=== PATIENT | female | born 1945 | race Caucasian/White ===

== ENCOUNTER → 2022-04-15 16:11 | Outpatient (BNVA) | payer MEDICARE, SELFPAY | PROVIDERS: Family Provider Family Medicine; Visit Provider Family Medicine | DX: N39.0 Urinary tract infection, site not specified (principal); M79.651 Pain in right thigh; M54.9 Dorsalgia, unspecified | CPT/HCPCS: 81000; 87077; 87086; 87184 ==

== ENCOUNTER → 2022-04-28 08:37 | Outpatient (BNVA) | payer MEDICARE, SELFPAY | PROVIDERS: Family Provider Family Medicine; PCP Family Medicine; Visit Provider Clinical Nurse Specialist Adult Health | DX: R30.0 Dysuria (principal); N30.00 Acute cystitis without hematuria | CPT/HCPCS: 81003; 87086 ==

== ENCOUNTER → 2022-05-14 14:39 | Outpatient (BNVA) | payer MEDICARE, SELFPAY | PROVIDERS: Family Provider Family Medicine; PCP Family Medicine; Visit Provider Clinical Nurse Specialist Adult Health | DX: R10.84 Generalized abdominal pain (principal) | CPT/HCPCS: 81003; 87077; 87086; 87184 ==

== ENCOUNTER 2022-05-16 18:05 | Emergency (ER) | payer MEDICARE, SELFPAY ==
[2022-05-16 18:23] VITALS: BP 160/107; PULSE 91; RESP 16; TEMP 36.2; O2SAT 95
[2022-05-16 18:36] VITALS: BP 174/99; PULSE 82; RESP 21; O2SAT 92
--- NOTE | 2022-05-16 18:38 | CTR_ITS ---
PROCEDURE INFORMATION: Exam: CT Abdomen And Pelvis Without Contrast Exam date and time: 05/16/2022 7:03 PM Age: 76 years old Clinical indication: Abdominal pain; Generalized; Additional info: Abd pain, centralized, x 4 days TECHNIQUE: Imaging protocol: Computed tomography of the abdomen and pelvis without contrast. Radiation optimization: All CT scans at this facility use at least one of these dose optimization techniques: automated exposure control; mA and/or kV adjustment per patient size (includes targeted exams where dose is matched to clinical indication); or iterative reconstruction. COMPARISON: No relevant prior studies available. RADIATION DOSE METRICS: Total DLP (mGy-cm): 803.24 FINDINGS: Lungs: There noncalcified nodules at the bilateral lung bases the largest of which measures 5 mm in the right middle lobe series 3, image 1.There are pulmonary parenchymal calcifications consistent with remote granulomatous organism exposure. Liver: Normal. No mass. Gallbladder and bile ducts: Gallbladder is filled with stones. Gallbladder wall is not well seen. Pancreas: Normal. No ductal dilation. Spleen: Normal. No splenomegaly. Adrenal glands: Normal. No mass. Kidneys and ureters: There are nonobstructing bilateral renal calculi. Stomach and bowel: There is diverticulosis of the colon without evidence of diverticulitis. Small hiatal hernia. Bowel mucosa not optimally visualized without oral or IV contrast. Appendix: Portions of the appendix are visualized and are normal in caliber measuring 5.3 mm. Intraperitoneal space: There is omental caking. Vasculature: Unremarkable. No abdominal aortic aneurysm. Lymph nodes: Unremarkable. No enlarged lymph nodes. Urinary bladder: Unremarkable as visualized. Reproductive: Unremarkable as visualized. Bones/joints: There are degenerative changes in the visualized spine. Multilevel lumbar broad-based disc osteophyte complexes.There is close approximation of the lumbar spinous processes associated with degenerative changes across the opposing surfaces, consistent with [place]'s findings. There are minimal chronic compression deformities of multiple lower thoracic and lumbar vertebra. Soft tissues: Unremarkable. CT/CT abdomen pelvis wo con [id number] IMPRESSION: 1. There is omental caking. Most common cause is metastatic disease from ovarian, gastric, or colon cancer. Differential includes other causes such is lymphoma, peritoneal mesothelioma, and tuberculosis peritonitis. 2. Gallbladder is filled with stones in the gallbladder wall is not well seen. 3. There are noncalcified nodular densities at the lung bases the larger of which measures 5 mm in the right middle lobe.For patients at low risk (minimal or absent history of smoking and of other known risk factors), no routine follow-up is indicated. For patients at high risk (history of smoking or of other known risk factors), consider optional CT Chest at 12 months. (Reference: Boy) REFERENCES: Boy Merritt, et al. Guidelines for Management of Incidental Pulmonary Nodules Detected on CT Images: From the Fleischner Society 2017. Radiology. 2017;284(1):228-243.
--- NOTE | 2022-05-16 18:40 | ED_ITS ---
HPI - Nausea/Vomiting/Diarrhea General: Chief complaint: Nausea/Vomiting/Diarrhea Stated complaint: ABD N\V Time Seen by Provider: 05/16/22 18:22 Source: patient Mode of arrival: ambulatory Limitations: no limitations History of Present Illness: 76-year-old female who states that she diagnosed a urinary tract infection 2 weeks ago she denies antibiotics states that over the last 4 days she has been developing diffuse abdominal pain along with nausea and vomiting. States she had a hard time tolerating anything p.o. states her pain is sharp in nature and rates it a 8 out of 10 denies any worsening proving factors denies any fevers or diarrhea. Associated nausea: Yes Associated symtoms: Reports nausea; Denies chest pain, dysuria or headache(s) Review of Systems Const: Denies: fever(s), chills, body aches or change in appetite Eyes: Denies: blurry vision or eye discomfort ENMT: Denies: throat pain or dental pain Card: Denies: chest pain Resp: Denies: dyspnea GI: Reports: abdominal pain, nausea and vomiting : Denies: dysuria Musc: Denies: neck pain or back pain Skin/Breast: Denies: rash Neuro: Denies: headache(s) Psych: Denies: depression Avinash/Lymph: Denies: easy bruising All/Imm: Denies: urticaria PFSH ED PFSH: Medical History No chronic diseases present Surgical History No pertinent past surgical history Family History (Updated 05/14/22 @ 11:37 by Cirilo Brambila NP) Son Cancer Unknown CAD (coronary artery disease) Cancer Social History Smoking and tobacco status: never smoked Alcohol intake: never Physical Exam Const: COMMON NORMALS: no acute distress, patient oriented x3 and healthy appearing HENMT: COMMON NORMALS: normocephalic and atraumatic HEAD & SCALP: normocephalic and atraumatic Eye: COMMON NORMALS: Equal, round and reactive pupils present and EOMs intact bilaterally PUPIL: Yes Equal, round and reactive pupils present Neck/C-Spine: COMMON NORMALS: full ROM and supple Chest: COMMONS NORMALS: normal inspection of the chest and normal palpation of entire chest wall Resp: COMMON NORMALS: normal respiratory effort, No retractions, No use of accessory muscles and clear to auscultation bilaterally AUSCULTATION: clear to auscultation bilaterally Cardio: COMMON NORMALS: regular rate, regular rhythm and No murmurs present (Cardio) RATE: regular rate RHYTHM: regular rhythm GI: COMMON NORMALS: Normal to inspection, nondistended, normoactive bowel sounds present, Soft to palpation, non-tender and no masses PALPATION: Yes Soft to palpation Extremity: COMMON NORMALS: normal to inspection and full ROM Neuro: COMMON NORMALS: patient oriented x3, moves all extremities and no focal motor deficits Psych: COMMON NORMALS: mental status grossly normal, Normal thought process present and cooperative THOUGHT PROCESS: Normal thought process present Skin: COMMON NORMALS: no rashes or lesions noted and no wounds GENERAL SKIN EXAM: no rashes or lesions noted Course Vital Signs: Vital signs: Vital Signs Temperature 97.1 F L 05/16/22 18:23 Pulse Rate 82 05/16/22 18:36 Respiratory Rate 21 H 05/16/22 18:49 Blood Pressure 174/99 05/16/22 18:36 Pulse Oximetry 92 05/16/22 18:36 Oxygen Delivery Me thod 05/16/22 18:36 MDM - Nausea/Vomiting/Diarrhea Medical Decision Making Patient presents here with abdominal pain CT did show omental caking is worrisome for metastatic disease. She does have gallstones no signs of cholecystitis. Her pain is improved here along with her nausea. We will get her oncology follow-up started on pain meds nausea medicine she is return to the ER if worsening she understands agrees to plan. Lab Data : 05/16/22 18:42 05/16/22 18:42 Radiology Impressions Abdomen/Pelvis CT 05/16/22 18:38 IMPRESSION: 1. There is omental caking. Most common cause is metastatic disease from ovarian, gastric, or colon cancer. Differential includes other causes such is lymphoma, peritoneal mesothelioma, and tuberculosis peritonitis. 2. Gallbladder is filled with stones in the gallbladder wall is not well seen. 3. There are noncalcified nodular densities at the lung bases the larger of which measures 5 mm in the right middle lobe.For patients at low risk (minimal or absent history of smoking and of other known risk factors), no routine follow-up is indicated. For patients at high risk (history of smoking or of other known risk factors), consider optional CT Chest at 12 months. (Reference: Boy) REFERENCES: Boy Merritt, et al. Guidelines for Management of Incidental Pulmonary Nodules Detected on CT Images: From the Fleischner Society 2017. Radiology. 2017;284(1):228-243. ADDENDUM: 05/16/221950 CRITICAL RESULT: The study was personally discussed on the telephone with Dr. Hanks on 05/16/2022 7:50 PM CDT. The results were understood and acknowledged. Laboratory Results WBC 8.0 10^3/uL (4.0-10.0) 05/16/22 18:42 RBC 4.76 10^6/uL (4.1-5.3) 05/16/22 18:42 Hgb 13.6 g/dL (11.5-15.3) 05/16/22 18:42 Hct 41.4 % (37.0-47.0) 05/16/22 18:42 MCV 87.0 fl (81-99) 05/16/22 18:42 MCH 28.6 pg (28.0-34.0) 05/16/22 18:42 MCHC 32.9 g/dL (30.0-36.0) 05/16/22 18:42 RDW 12.3 % (12.1-15.1) 05/16/22 18:42 Plt Count 300 10^3/cmm (130-400) 05/16/22 18:42 MPV 10.7 fL (7.4-10.4) H 05/16/22 18:42 Neut % (Auto) 69.9 % 05/16/22 18:42 Lymph % (Auto) 20.2 % 05/16/22 18:42 [place] % (Auto) 6.4 % 05/16/22 18:42 Eos % (Auto) 2.3 % 05/16/22 18:42 Baso % (Auto) 0.9 % 05/16/22 18:42 Neut # (Auto) 5.58 10^3/uL (1.8-7.7) 05/16/22 18:42 Lymph # (Auto) 1.6 10^3/uL (0.8-4.8) 05/16/22 18:42 [place] # (Auto) 0.5 10^3/uL (0.2-0.9) 05/16/22 18:42 Eos # (Auto) 0.2 10^3/uL (0.0-0.8) 05/16/22 18:42 Baso # (Auto) 0.1 10^3/uL (0.0-0.1) 05/16/22 18:42 Nucleated RBC % (auto) 0 % 05/16/22 18:42 Nucleated RBCs # 0.0 /100WBC 05/16/22 18:42 Sodium 135 mmol/L (136-145) L 05/16/22 18:42 Potassium 3.5 mmol/L (3.5-5.1) 05/16/22 18:42 Chloride 95 mmol/L (98-107) L 05/16/22 18:42 Carbon Dioxide 26 mmol/L (22-29) 05/16/22 18:42 Anion Gap 17.5 (5-19) 05/16/22 18:42 BUN 14 mg/dL (8-23) 05/16/22 18:42 Creatinine 0.8 mg/dL (0.5-0.9) 05/16/22 18:42 GFR Calculation Not Reportable 05/16/22 18:42 Glucose 99 mg/dL (65-115) 05/16/22 18:42 Calculated Osmolality 281 mOsm/kg (285-295) L 05/16/22 18:42 Calcium 9.2 mg/dL (8.5-10.5) 05/16/22 18:42 Total Bilirubin 0.4 mg/dL (0.15-1.2) 05/16/22 18:42 AST 14 U/L (0-32) 05/16/22 18:42 ALT 9 U/L (0-33) 05/16/22 18:42 Alkaline Phosphatase 105 IU/L (35-105) 05/16/22 18:42 Total Protein 6.8 g/dL (6.6-8.7) 05/16/22 18:42 Albumin 4.0 g/dL (3.5-5.2) 05/16/22 18:42 Globulin 2.8 g/dL (1.3-4.6) 05/16/22 18:42 Lipase 21 U/L (13-60) 05/16/22 18:42 Urine Color Yellow (Yellow) 05/16/22 18:42 Urine Appearance Clear (CLEAR) 05/16/22 18:42 Urine pH 6 (5-7) 08 18:42 Ur Specific [place] 1.010 (1.005-1.030) 05/16/22 18:42 Urine Protein Neg (Negative) 05/16/22 18:42 Urine Glucose (UA) Norm (Normal) 05/16/22 18:42 Urine Ketones Negative (Negative) 05/16/22 18:42 Urine Blood 2+ (Negative) H 05/16/22 18:42 Urine Nitrate Negative (Negative) 05/16/22 18:42 Urine Bilirubin Neg (Negative) 05/16/22 18:42 Urine Urobilinogen Neg mg/dL (Negative) 05/16/22 18:42 Ur Leukocyte Esterase Negative (Negative) 05/16/22 18:42 Urine RBC 5-10 /hpf (0-2) H 05/16/22 18:42 Urine WBC 0-4 /hpf (0-5) H 05/16/22 18:42 Ur Squamous Epith Cells 0-4 /hpf (0-5) H 05/16/22 18:42 Amorphous Sediment Not Reportable 05/16/22 18:42 Urine Bacteria Trace /hpf (NONE) 05/16/22 18:42 Discharge Plan Discharge Patient Disposition: Home Clinical Impression: Abdominal pain Condition: Stable Prescriptions: New hydrocodone-acetaminophen 5-325 mg tablet 1 tab PO Q6H PRN (Reason: pain) Qty: 14 0RF ondansetron 4 mg tablet,disintegrating 4 mg PO Q6H PRN (Reason: nausea and vomiting) Qty: 14 0RF No Action ciprofloxacin HCl [Cipro] 500 mg tablet 500 mg PO BID 5 Days Qty: 10 0RF Discharge Orders: Discharge ED (Routine); Ordered 05/16/22 Ordered By: Ramona Huynh Referrals: Mart Juárez MD [Hospitalist] - 1-3 days Hung Vasquez DO [Primary Care Provider] - Discharge Diet: Advance as tolerated Discharge Activity: Resume usual activity Patient Instructions: Abdominal Pain (ED), Opioid Safety Coding Level of Care Code ED Hook And Eye Machine Operator for Chg Fwd Exam Comprehensive
[2022-05-16 18:49] VITALS: RESP 21
[2022-05-16] MEDS: ondansetron 2 mg/ML SDV 2 mL 4 MG IVP (18:49)
[2022-05-16] MEDS: morphine 4 mg/mL SDV 1 mL IVP (18:49)
[2022-05-16] MEDS: sodium chloride 0.9% 1,000 ML 999 ML IV (18:49)
[2022-05-16 19:23] LABS: Basophils # 0.1 10^3/uL (0.0-0.1); Basophils % 0.9 %; Eosinophils # 0.2 10^3/uL (0.0-0.8); Eosinophils % 2.3 %; Hematocrit 41.4 % (37.0-47.0); Hemoglobin 13.6 g/dL (11.5-15.3); Lymphocytes # 1.6 10^3/uL (0.8-4.8); Lymphocytes % 20.2 %; Mean Corpuscular HGB Conc 32.9 g/dL (30.0-36.0); Mean Corpuscular Hemoglobin 28.6 pg (28.0-34.0); Mean Platelet Volume 10.7 fL (7.4-10.4); Monocytes # 0.5 10^3/uL (0.2-0.9); Monocytes % 6.4 %; Neutrophils # 5.58 10^3/uL (1.8-7.7); Neutrophils % 69.9 %; Nucleated Red Blood Cells % 0 %; Platelet Count 300 10^3/cmm (130-400); Red Blood Count 4.76 10^6/uL (4.1-5.3); Red Cell Distribution Width 12.3 % (12.1-15.1)
[2022-05-16 19:43] LABS: Add Urine Microscopic? YES; Bilirubin Urine Neg (Negative); Blood Urine 2+ (Negative); Glucose Urine UA Norm (Normal); Ketones Urine Negative (Negative); Leukocyte Esterase Urine Negative (Negative); Nitrate Urine Negative (Negative); Protein Urine Neg (Negative); Urine Appearance Clear (CLEAR); Urine Color Yellow (Yellow); Urobilinogen Urine Neg (Negative); pH Urine 6 (5-7)
[2022-05-16 19:47] LABS: Alanine Aminotransferase 9 U/L (0-33); Alkaline Phosphatase 105 IU/L (35-105); Anion Gap 17.5 (5-19); Aspartate Amino Transferase 14 U/L (0-32); Blood Urea Nitrogen 14 mg/dL (8-23); Calcium 9.2 mg/dL (8.5-10.5); Carbon Dioxide 26 mmol/L (22-29); Chloride 95 mmol/L (98-107); Globulin 2.8 g/dL (1.3-4.6); Glucose 99 mg/dL (65-115); Lipase 21 U/L (13-60); Osmolality Calculated 281 mOsm/kg (285-295); Potassium 3.5 mmol/L (3.5-5.1); Sodium 135 mmol/L (136-145); Total Bilirubin 0.4 mg/dL (0.15-1.2); Total Protein 6.8 g/dL (6.6-8.7)
[2022-05-16 19:49] LABS: Add Urine Culture? No; Bacteria Urine TRACE /hpf; Squamous Epithelial Cell Urine 0-4 /hpf (0-5); WBC Urine 0-4 /hpf (0-5)
--- NOTE | 2022-05-18 15:31 | DCPLANNER ---
Addendum entered by Varsha Denise 06/05/22 11:44: Patient had a follow up appointment scheduled for 06.03.22 with general surgery - patient did not attend appointment. Addendum entered by Varsha Denise 05/21/22 16:33: Patient had a follow up appointment scheduled for 05.20.[address] Juárez at the [facility] - patient did attend appointment. Patient has a follow up appointment scheduled for 06.03.[address] Potter at General Surgery. Clinic will call patient with appointment information. Addendum entered by Varsha Denise 05/18/22 15:53: escrow manager also had message to schedule a follow up appointment for patient with Dr. Juárez. escrow manager called Melisa, inside sales coordinator at the [facility], a follow up appointment was scheduled for Wednesday, May 20, 2022 at 3:00. Clinic called patient with appointment information. Original Note: escrow manager had message to schedule a follow up appointment for patient with general surgery. escrow manager sent patients information to the front office staff at general surgery. Patients information will be printed and reviewed. Clinic will call patient with appointment information.
== END 2022-05-16 20:27 | disposition home or self-care (01) ==
PROVIDERS: Emergency Provider Emergency Medicine; PCP Family Medicine
DX: R10.9 Unspecified abdominal pain (principal)
CPT/HCPCS: 74176; 80053; 81001; 83690; 85025; 96374; 96375; 99285; J2270; J2405; J7030

== ENCOUNTER 2022-05-20 14:06 | Oncology outpatient (recurring) (ONCR) | payer MEDICARE, SELFPAY ==
[2022-05-20 16:34] LABS: Basophils # 0.1 10^3/uL (0.0-0.1); Basophils % 0.7 %; Eosinophils # 0.2 10^3/uL (0.0-0.8); Eosinophils % 2.2 %; Hematocrit 40.8 % (37.0-47.0); Hemoglobin 13.5 g/dL (11.5-15.3); Lymphocytes # 1.5 10^3/uL (0.8-4.8); Lymphocytes % 20.1 %; Mean Corpuscular HGB Conc 33.1 g/dL (30.0-36.0); Mean Corpuscular Hemoglobin 28.5 pg (28.0-34.0); Mean Corpuscular Volume 86.3 fl (81-99); Mean Platelet Volume 10.4 fL (7.4-10.4); Monocytes # 0.5 10^3/uL (0.2-0.9); Monocytes % 6.4 %; Neutrophils # 5.39 10^3/uL (1.8-7.7); Neutrophils % 70.3 %; Nucleated Red Blood Cells % 0 %; Platelet Count 301 10^3/cmm (130-400); Red Blood Count 4.73 10^6/uL (4.1-5.3); Red Cell Distribution Width 12.4 % (12.1-15.1); White Blood Count 7.7 10^3/uL (4.0-10.0)
[2022-05-20 18:02] LABS: Alanine Aminotransferase 10 U/L (0-33); Albumin Level 4.1 g/dL (3.5-5.2); Alkaline Phosphatase 107 IU/L (35-105); Anion Gap 15.8 (5-19); Aspartate Amino Transferase 16 U/L (0-32); Blood Urea Nitrogen 15 mg/dL (8-23); Calcium 9.3 mg/dL (8.5-10.5); Cancer Antigen 19 9 5.85 U/mL (0-35); Carbon Dioxide 29 mmol/L (22-29); Chloride 99 mmol/L (98-107); Globulin 2.6 g/dL (1.3-4.6); Glucose 97 mg/dL (65-115); Osmolality Calculated 291 mOsm/kg (285-295); Potassium 3.8 mmol/L (3.5-5.1); Sodium 140 mmol/L (136-145); Total Bilirubin 0.4 mg/dL (0.15-1.2); Total Protein 6.7 g/dL (6.6-8.7)
[2022-05-21 01:47] LABS: Carcinoembryonic Antigen 1.8 ng/mL (0.0-4.7)
== END 2022-06-10 23:59 | disposition home or self-care (01) ==
PROVIDERS: PCP Family Medicine; Visit Provider Internal Medicine Medical Oncology
DX: C78.6 Secondary malignant neoplasm of retroperitoneum and peritoneum (principal); C80.1 Malignant (primary) neoplasm, unspecified; R53.83 Other fatigue; R91.8 Other nonspecific abnormal finding of lung field; K59.00 Constipation, unspecified
CPT/HCPCS: 36415; 80053; 82378; 85025; 86300; 86301; 86304; 99205

== ENCOUNTER 2022-07-03 07:45 | Oncology outpatient (recurring) (ONCR) | payer MEDICARE, SELFPAY | END 2022-07-10 23:59 | disposition home or self-care (01) | PROVIDERS: PCP Family Medicine; Visit Provider Internal Medicine Medical Oncology | DX: C78.6 Secondary malignant neoplasm of retroperitoneum and peritoneum (principal); C80.1 Malignant (primary) neoplasm, unspecified | CPT/HCPCS: 99214 ==

== ENCOUNTER 2023-02-11 15:09 | Oncology outpatient (recurring) (ONCR) | payer OTHER, SELFPAY | END 2023-03-10 23:59 | disposition home or self-care (01) | LOC: ONCMED 15:10 | PROVIDERS: PCP Family Medicine; Visit Provider Internal Medicine Medical Oncology | DX: Z45.2 Encounter for adjustment and management of vascular access device (principal) | CPT/HCPCS: 96523; J1642 ==

== ENCOUNTER → 2023-03-21 18:25 | Outpatient (BNVA) | payer OTHER, SELFPAY | PROVIDERS: PCP Family Medicine; Visit Provider Nurse Practitioner Family | DX: R30.0 Dysuria (principal); N30.90 Cystitis, unspecified without hematuria | CPT/HCPCS: 81000; 87077; 87086; 87184 ==

== ENCOUNTER 2023-05-28 08:23 | Outpatient (RCR) | payer MEDICARE, SELFPAY | END 2023-06-10 23:59 | disposition home or self-care (01) | LOC: SPT 08:23 | PROVIDERS: Visit Provider Clinical Nurse Specialist Adult Health | DX: M25.561 Pain in right knee (principal); M62.81 Muscle weakness (generalized) | CPT/HCPCS: 97110; 97112; 97162; 97530 ==

== ENCOUNTER 2023-06-11 06:00 | Outpatient (RCR) | payer MEDICARE, SELFPAY | END 2023-07-10 23:59 | disposition home or self-care (01) | LOC: SPT 06:00 | PROVIDERS: Visit Provider Clinical Nurse Specialist Adult Health | DX: M25.561 Pain in right knee (principal); M62.81 Muscle weakness (generalized) | CPT/HCPCS: 97110; 97112; 97530 ==

== ENCOUNTER 2023-07-01 14:11 | Oncology outpatient (recurring) (ONCR) | payer MEDICARE, SELFPAY ==
[2023-07-01 14:25] VITALS: BP 180/71; PULSE 63; RESP 16; TEMP 37.2; O2SAT 94
== END 2023-07-10 23:59 | disposition home or self-care (01) ==
LOC: ONCMED 14:11
PROVIDERS: Visit Provider Internal Medicine Medical Oncology
DX: Z45.2 Encounter for adjustment and management of vascular access device (principal)
CPT/HCPCS: 96523; J1642

== ENCOUNTER 2023-07-11 06:00 | Outpatient (RCR) | payer MEDICARE, SELFPAY | END 2023-08-03 23:59 | disposition home or self-care (01) | LOC: SPT 06:00 | PROVIDERS: Visit Provider Clinical Nurse Specialist Adult Health | DX: M25.561 Pain in right knee (principal); M62.81 Muscle weakness (generalized) | CPT/HCPCS: 97110; 97112; 97530 ==

== ENCOUNTER → 2023-10-19 09:07 | Outpatient (BNVA) | payer MEDICARE, SELFPAY | PROVIDERS: PCP Clinical Nurse Specialist Adult Health; Visit Provider Clinical Nurse Specialist Adult Health | DX: E55.9 Vitamin D deficiency, unspecified (principal); G62.9 Polyneuropathy, unspecified; I10 Essential (primary) hypertension | CPT/HCPCS: 82306 ==

== ENCOUNTER 2024-12-11 10:21 | Oncology outpatient (recurring) (ONCR) | payer MEDICARE, SELFPAY | END 2025-01-08 23:59 | disposition home or self-care (01) | PROVIDERS: PCP Clinical Nurse Specialist Adult Health; Visit Provider Internal Medicine Medical Oncology | DX: C56.1 Malignant neoplasm of right ovary (principal); Z92.21 Personal history of antineoplastic chemotherapy | CPT/HCPCS: 99205 ==

== ENCOUNTER 2025-01-15 07:49 | Oncology outpatient (recurring) (ONCR) | payer MEDICARE, SELFPAY ==
[2025-01-15 08:33] LABS: Basophils # 0.1 10^3/uL (0.0-0.1); Basophils % 0.9 %; Eosinophils # 0.4 10^3/uL (0.0-0.8); Eosinophils % 5.7 %; Hematocrit 40.5 % (36-47); Lymphocytes # 2.1 10^3/uL (0.8-4.8); Lymphocytes % 32.7 %; Mean Corpuscular HGB Conc 32.3 g/dL (30-55); Mean Corpuscular Volume 89.8 fl (85-98); Mean Platelet Volume 10.3 fL (7.4-10.4); Monocytes # 0.4 10^3/uL (0.2-0.9); Monocytes % 5.7 %; Neutrophils # 3.49 10^3/uL (1.8-7.7); Neutrophils % 54.7 %; Nucleated Red Blood Cells % 0 %; Platelet Count 217 10^3/cmm (157-399); Red Blood Count 4.51 10^6/uL (3.85-5.65); Red Cell Distribution Width 13.6 % (12.1-15.1); White Blood Count 6.37 10^3/uL (3.29-11.43)
[2025-01-15 08:54] LABS: Bacteria Urine 4+ /hpf; Hyaline Casts Urine 2.46 /lpf; RBC Urine 0-2 /hpf (0-2); Squamous Epithelial Cell Urine 0-5 /hpf (0-5); WBC Urine >100 /hpf (0-5)
[2025-01-15 09:00] LABS: Specific Gravity, Urine 1.015 (1.005-1.030); Urine Appearance Slightly Cloudy (CLEAR); Urine Color Yellow (Yellow); pH Urine 6 (5-7)
[2025-01-15 09:01] LABS: Add Urine Culture? Yes; Add Urine Microscopic? YES; Bilirubin Urine Neg (Negative); Blood Urine 2+ (Negative); Glucose Urine UA Norm (Normal); Ketones Urine Negative (Negative); Leukocyte Esterase Urine 2+ (Negative); Nitrate Urine Positive (Negative); Protein Urine 1+ (Negative); Urobilinogen Urine Neg (Negative)
[2025-01-15 09:08] LABS: Alanine Aminotransferase 13 U/L (0-33); Alkaline Phosphatase 78 U/L (35-105); Anion Gap 12.8 (5-19); Aspartate Amino Transferase 14 U/L (0-32); Blood Urea Nitrogen 21 mg/dL (8-23); CA 125 7.3 U/mL (0-35); Calcium 9.1 mg/dL (8.5-10.5); Carbon Dioxide 27 mmol/L (22-29); Chloride 104 mmol/L (98-107); Creatinine Clr Calc Pharmacy 54.1202; Globulin 2.7 g/dL (1.3-4.6); Glucose 103 mg/dL (65-115); Osmolality Calculated 293 mOsm/kg (285-295); Potassium 3.8 mmol/L (3.5-5.1); Sodium 140 mmol/L (136-145); Total Bilirubin 0.5 mg/dL (0.15-1.2); Total Protein 6.7 g/dL (6.6-8.7)
[2025-01-15] MEDS: OLANZapine 5 mg TABLET PO (11:38)
[2025-01-15] MEDS: sodium chloride 0.9% 250 ML 75 ML IV (11:38)
[2025-01-15] MEDS: diphenhydrAMINE 50 mg/mL SDV 1mL 25 MG IVP (11:39)
[2025-01-15] MEDS: palonosetron 0.25 mg/5 mL SDV IVP (11:39)
[2025-01-15] MEDS: famotidine 20 mg/2 mL INJ IVP (11:44)
[2025-01-15] MEDS: aprepitant 130 mg/18 ml SDV IVP (11:45)
[2025-01-15] MEDS: dexamethasone 4 mg/mL INJ 5 mL 12 MG IVP (11:49)
[2025-01-15] MEDS: dextrose 5% 250 ML 75 ML IV (12:08)
[2025-01-15] MEDS: DOXORUBICIN LIPOSOMAL IV (12:09)
[2025-01-15] MEDS: DEXTROSE 5% IV (12:09)
[2025-01-15] MEDS: CARBOplatin 440 MG in sodium chloride 0.9% 500 ML 544 MG IV (13:21)
[2025-01-15] MEDS: BEVACIZUMAB BVZR IV (14:35)
[2025-01-15] MEDS: SODIUM CHLORIDE 0.9% IV (14:35)
[2025-01-15] MEDS: pegfilgrastim 6 mg/0.6 mL Kit (onpro) SUBCUT (16:00)
[2025-01-15 16:08] VITALS: BP 139/78; PULSE 79; RESP 16; TEMP 36.4; O2SAT 92
== END 2025-01-15 23:59 | disposition home or self-care (01) ==
PROVIDERS: Nurse Practitioner Family; PCP Clinical Nurse Specialist Adult Health; Visit Provider Internal Medicine Medical Oncology
DX: Z53.9 Procedure and treatment not carried out, unspecified reason; Z51.11 Encounter for antineoplastic chemotherapy; C56.9 Malignant neoplasm of unspecified ovary; Z79.899 Other long term (current) drug therapy; Z79.52 Long term (current) use of systemic steroids
CPT/HCPCS: 80053; 81001; 85025; 86304; 87086; 96372; 96375; 96377; 96413; 96417; 99215; J0185; J1100; J1200; J2469; J2506; J3490; J7040; J7050; J7060; J9045; J9999; Q2050; Q5118

== ENCOUNTER 2025-02-02 07:00 | Oncology outpatient (recurring) (ONCR) | payer MEDICARE, SELFPAY ==
[2025-01-22 09:01] LABS: Basophils # 0.1 10^3/uL (0.0-0.1); Basophils % 1.5 %; Eosinophils # 0.3 10^3/uL (0.0-0.8); Eosinophils % 4.2 %; Hematocrit 37.6 % (36-47); Lymphocytes # 1.3 10^3/uL (0.8-4.8); Lymphocytes % 19.6 %; Mean Corpuscular HGB Conc 32.7 g/dL (30-55); Mean Corpuscular Hemoglobin 29.7 pg (27-33); Mean Corpuscular Volume 90.8 fl (85-98); Mean Platelet Volume 10.7 fL (7.4-10.4); Monocytes # 0.2 10^3/uL (0.2-0.9); Monocytes % 2.8 %; Neutrophils # 4.57 10^3/uL (1.8-7.7); Neutrophils % 70.5 %; Nucleated Red Blood Cells % 0 %; Platelet Count 151 10^3/cmm (157-399); Red Blood Count 4.14 10^6/uL (3.85-5.65); Red Cell Distribution Width 13.6 % (12.1-15.1); White Blood Count 6.48 10^3/uL (3.29-11.43)
[2025-01-22 09:28] LABS: Slide Review Slide Review Perform
[2025-01-22 09:29] LABS: Add Urine Microscopic? YES; Bilirubin Urine Neg (Negative); Blood Urine Neg (Negative); Glucose Urine UA Norm (Normal); Ketones Urine Negative (Negative); Leukocyte Esterase Urine 2+ (Negative); Nitrate Urine Negative (Negative); Protein Urine Neg (Negative); Urine Appearance Slightly Cloudy (CLEAR); Urine Color Yellow (Yellow); Urobilinogen Urine Norm (Negative); pH Urine 5 (5-7)
[2025-01-22 09:30] LABS: Alanine Aminotransferase 18 U/L (0-33); Alkaline Phosphatase 125 U/L (35-105); Anion Gap 14.4 (5-19); Aspartate Amino Transferase 17 U/L (0-32); Blood Urea Nitrogen 26 mg/dL (8-23); CA 125 6.7 U/mL (0-35); Calcium 8.9 mg/dL (8.5-10.5); Carbon Dioxide 24 mmol/L (22-29); Chloride 103 mmol/L (98-107); Creatinine Clr Calc Pharmacy 43.5534; Globulin 2.7 g/dL (1.3-4.6); Glucose 88 mg/dL (65-115); Osmolality Calculated 288 mOsm/kg (285-295); Potassium 4.4 mmol/L (3.5-5.1); Sodium 137 mmol/L (136-145); Total Bilirubin 0.4 mg/dL (0.15-1.2); Total Protein 6.7 g/dL (6.6-8.7)
[2025-01-22 09:45] LABS: RBC Urine 0-4 /hpf (0-2); Squamous Epithelial Cell Urine 0-4 /hpf (0-5); WBC Urine 0-4 /hpf (0-5)
[2025-01-22 09:46] LABS: Add Urine Culture? No; Other Crystals Urine XRAY CRYSTALS 10-15 /hpf
[2025-01-29 07:49] LABS: Basophils % 1.4 %; Eosinophils # 0.1 10^3/uL (0.0-0.8); Eosinophils % 3.4 %; Hematocrit 34.5 % (36-47); Lymphocytes # 1.2 10^3/uL (0.8-4.8); Lymphocytes % 38.9 %; Mean Corpuscular HGB Conc 32.8 g/dL (30-55); Mean Corpuscular Hemoglobin 29.4 pg (27-33); Mean Corpuscular Volume 89.6 fl (85-98); Mean Platelet Volume 9.8 fL (7.4-10.4); Monocytes # 0.2 10^3/uL (0.2-0.9); Monocytes % 5.1 %; Neutrophils # 1.49 10^3/uL (1.8-7.7); Neutrophils % 50.2 %; Nucleated Red Blood Cells % 0 %; Platelet Count 109 10^3/cmm (157-399); Red Blood Count 3.85 10^6/uL (3.85-5.65); Red Cell Distribution Width 13.1 % (12.1-15.1); White Blood Count 2.96 10^3/uL (3.29-11.43)
[2025-01-29 08:09] LABS: Alanine Aminotransferase 18 U/L (0-33); Albumin Level 4.1 g/dL (3.5-5.2); Alkaline Phosphatase 109 U/L (35-105); Anion Gap 12.1 (5-19); Aspartate Amino Transferase 17 U/L (0-32); Blood Urea Nitrogen 15 mg/dL (8-23); Calcium 8.7 mg/dL (8.5-10.5); Carbon Dioxide 26 mmol/L (22-29); Chloride 103 mmol/L (98-107); Creatinine Clr Calc Pharmacy 54.4418; Globulin 2.7 g/dL (1.3-4.6); Glucose 83 mg/dL (65-115); Magnesium 1.9 mg/dL (1.7-2.3); Osmolality Calculated 284 mOsm/kg (285-295); Potassium 4.1 mmol/L (3.5-5.1); Sodium 137 mmol/L (136-145); Total Bilirubin 0.3 mg/dL (0.15-1.2); Total Protein 6.8 g/dL (6.6-8.7)
[2025-01-29] MEDS: sodium chloride 0.9% 250 ML 75 ML IV (09:06)
[2025-01-29] MEDS: SODIUM CHLORIDE 0.9% IV (09:07)
[2025-01-29] MEDS: BEVACIZUMAB AWWB IV (09:07)
[2025-01-29 10:09] VITALS: BP 170/74; PULSE 69; RESP 18; TEMP 37.1; O2SAT 92
--- NOTE | 2025-02-02 07:00 | USCV_ITS ---
Mari Swift Age: 79 Gender: F : 1945 Exam Date: 02/02/2025 07:27 Ordering Phys: Karlo Acharya MD Technologist: Tyler Rodriguez Exam Location: [facility] [place] Indication: high risk meds BP: 142 / 68 HR: Rhythm: Sinus Technical Quality: Adequate MEASUREMENTS (Male / Female) Normal Values 2D ECHO LV Diastolic Diameter PLAX 4.0 cm 4.2 - 5.9 / 3.9 - 5.3 cm IVS Diastolic Thickness 0.9 cm 0.6 - 1.0 / 0.6 - 0.9 cm IVS Systolic Thickness 1.2 cm LVPW Diastolic Thickness 1.3 cm 0.6 - 1.0 / 0.6 - 0.9 cm LVPW Systolic Thickness 1.2 cm LVOT Diameter 2.2 cm LV Ejection Fraction 2D Teich 70.9 % LV Ejection Fraction MOD 4C 62.3 % LV Ejection Fraction MOD 2C 65.6 % LV Ejection Fraction 2C AL 72.0 % LA Diameter 4.6 cm RA Systolic Volume 4C AL 30.7 ml RA Systolic Volume 4C MOD 30.2 ml LA Sys Volume AL 53.3 cm cubed LA Sys Volume Index AL 29.3 cm cubed/m squared Aorta at Sinotubular Diameter 2.6 cm M-MODE LA Ao Ratio MM 2.2 AV Cusp Separation MM 1.6 cm FINDINGS Left Ventricle Normal left ventricular size, systolic function and wall thickness, with no regional wall motion abnormalities. Left ventricular ejection fraction is estimated at 60%. Right Ventricle Right Atrium Left Atrium Moderately increased left atrial size. Mitral Valve Aortic Valve Tricuspid Valve Pulmonic Valve Pericardium No pericardial or pleural effusion. Aorta IVC CONCLUSIONS limited echo Normal left ventricular size, systolic function and wall thickness, with no regional wall motion abnormalities. Left ventricular ejection fraction is estimated at 60%. Moderately increased left atrial size. There is no pericardial effusion. Neto Bray MD (Electronically Signed) Final Date: 25 Feb 2025 17:03 S
== END 2025-02-07 23:59 | disposition home or self-care (01) ==
LOC: ONCMED 07:02 → RAD 02-03 00:01 → ONCMED 02-05 09:49
PROVIDERS: Internal Medicine; PCP Clinical Nurse Specialist Adult Health; Visit Provider Internal Medicine Medical Oncology
DX: Z53.9 Procedure and treatment not carried out, unspecified reason; C56.9 Malignant neoplasm of unspecified ovary; Z79.899 Other long term (current) drug therapy
CPT/HCPCS: 36415; 80053; 81001; 83735; 85025; 86304; 93308; 96413; 99213; 99214; J7050; Q5107

== ENCOUNTER 2025-02-12 07:06 | Oncology outpatient (recurring) (ONCR) | payer MEDICARE, SELFPAY ==
[2025-02-12 07:33] LABS: Basophils # 0.1 10^3/uL (0.0-0.1); Basophils % 1.6 %; Eosinophils # 0.1 10^3/uL (0.0-0.8); Eosinophils % 2.5 %; Hematocrit 38.7 % (36-47); Lymphocytes # 1.5 10^3/uL (0.8-4.8); Lymphocytes % 32.4 %; Mean Corpuscular HGB Conc 32.3 g/dL (30-55); Mean Corpuscular Hemoglobin 29.6 pg (27-33); Mean Corpuscular Volume 91.5 fl (85-98); Mean Platelet Volume 9.5 fL (7.4-10.4); Monocytes # 0.4 10^3/uL (0.2-0.9); Monocytes % 8.3 %; Neutrophils # 2.47 10^3/uL (1.8-7.7); Nucleated Red Blood Cells % 0 %; Platelet Count 305 10^3/cmm (157-399); Red Blood Count 4.23 10^6/uL (3.85-5.65); White Blood Count 4.48 10^3/uL (3.29-11.43)
[2025-02-12 07:48] LABS: Alanine Aminotransferase 13 U/L (0-33); Alkaline Phosphatase 94 U/L (35-105); Anion Gap 15.1 (5-19); Aspartate Amino Transferase 16 U/L (0-32); Blood Urea Nitrogen 17 mg/dL (8-23); Calcium 8.9 mg/dL (8.5-10.5); Carbon Dioxide 25 mmol/L (22-29); Chloride 103 mmol/L (98-107); Glucose 120 mg/dL (65-115); Osmolality Calculated 291 mOsm/kg (285-295); Potassium 4.1 mmol/L (3.5-5.1); Sodium 139 mmol/L (136-145); Total Bilirubin 0.3 mg/dL (0.15-1.2)
[2025-02-12] MEDS: OLANZapine 5 mg TABLET PO (09:31)
[2025-02-12] MEDS: sodium chloride 0.9% 250 ML 75 ML IV (09:31)
[2025-02-12] MEDS: diphenhydrAMINE 50 mg/mL SDV 1mL 25 MG IVP (09:32)
[2025-02-12] MEDS: palonosetron 0.25 mg/5 mL SDV IVP (09:32)
[2025-02-12] MEDS: famotidine 20 mg/2 mL INJ IVP (09:35)
[2025-02-12] MEDS: aprepitant 130 mg/18 ml SDV IVP (09:37)
[2025-02-12] MEDS: dexamethasone 4 mg/mL INJ 5 mL 12 MG IVP (09:41)
[2025-02-12] MEDS: BEVACIZUMAB AWWB IV (10:06)
[2025-02-12] MEDS: SODIUM CHLORIDE 0.9% IV ×2 (10:06→11:52)
[2025-02-12] MEDS: DOXORUBICIN LIPOSOMAL IV (10:47)
[2025-02-12] MEDS: DEXTROSE 5% IV (10:47)
[2025-02-12] MEDS: CARBOPLATIN IV (11:52)
[2025-02-12] MEDS: pegfilgrastim 6 mg/0.6 mL Kit (onpro) SUBCUT (13:05)
== END 2025-02-12 23:59 | disposition home or self-care (01) ==
PROVIDERS: PCP Clinical Nurse Specialist Adult Health; Visit Provider Internal Medicine Medical Oncology
DX: Z53.9 Procedure and treatment not carried out, unspecified reason; Z51.11 Encounter for antineoplastic chemotherapy; Z51.12 Encounter for antineoplastic immunotherapy; C76.2 Malignant neoplasm of abdomen; Z85.43 Personal history of malignant neoplasm of ovary; R03.0 Elevated blood-pressure reading, without diagnosis of hypertension; Z79.52 Long term (current) use of systemic steroids; Z79.899 Other long term (current) drug therapy
CPT/HCPCS: 80053; 85025; 96372; 96375; 96377; 96413; 96417; 99214; J0185; J1100; J1200; J2469; J2506; J3490; J7040; J7050; J7060; J9045; J9999; Q2050; Q5107

== ENCOUNTER → 2025-02-16 13:59 | Outpatient (BNVA) | payer MEDICARE, SELFPAY | PROVIDERS: PCP Family Medicine | DX: R30.9 Painful micturition, unspecified (principal); N39.0 Urinary tract infection, site not specified | CPT/HCPCS: 81000; 87086 ==

== ENCOUNTER 2025-02-26 08:03 | Oncology outpatient (recurring) (ONCR) | payer MEDICARE, SELFPAY ==
[2025-02-26 08:54] LABS: Basophils # 0.1 10^3/uL (0.0-0.1); Basophils % 1.8 %; Eosinophils # 0.1 10^3/uL (0.0-0.8); Eosinophils % 3.1 %; Hematocrit 34.3 % (36-47); Mean Corpuscular HGB Conc 32.1 g/dL (30-55); Mean Corpuscular Hemoglobin 29.6 pg (27-33); Mean Corpuscular Volume 92.5 fl (85-98); Mean Platelet Volume 10.9 fL (7.4-10.4); Monocytes # 0.3 10^3/uL (0.2-0.9); Monocytes % 6.5 %; Neutrophils # 2.38 10^3/uL (1.8-7.7); Neutrophils % 61.8 %; Nucleated Red Blood Cells % 0 %; Platelet Count 129 10^3/cmm (157-399); Red Blood Count 3.71 10^6/uL (3.85-5.65); Red Cell Distribution Width 15.1 % (12.1-15.1); White Blood Count 3.85 10^3/uL (3.29-11.43)
[2025-02-26 09:11] LABS: Alanine Aminotransferase 17 U/L (0-33); Alkaline Phosphatase 118 U/L (35-105); Anion Gap 14.1 (5-19); Aspartate Amino Transferase 16 U/L (0-32); Blood Urea Nitrogen 28 mg/dL (8-23); Calcium 9.1 mg/dL (8.5-10.5); Carbon Dioxide 25 mmol/L (22-29); Chloride 106 mmol/L (98-107); Creatinine Clr Calc Pharmacy 48.2542; Globulin 2.7 g/dL (1.3-4.6); Glucose 104 mg/dL (65-115); Osmolality Calculated 298 mOsm/kg (285-295); Potassium 4.1 mmol/L (3.5-5.1); Sodium 141 mmol/L (136-145); Total Bilirubin 0.4 mg/dL (0.15-1.2); Total Protein 6.7 g/dL (6.6-8.7)
[2025-02-26] MEDS: sodium chloride 0.9% 250 ML IV (10:25)
[2025-02-26] MEDS: SODIUM CHLORIDE 0.9% IV (10:25)
[2025-02-26] MEDS: BEVACIZUMAB AWWB IV (10:25)
[2025-02-26 11:20] VITALS: BP 124/78; PULSE 74; RESP 18; TEMP 36.6; O2SAT 98
[2025-02-26 14:49] LABS: CA 125 8.3 U/mL (0-35)
== END 2025-03-10 23:59 | disposition home or self-care (01) ==
PROVIDERS: PCP Family Medicine; Visit Provider Internal Medicine Medical Oncology
DX: Z51.12 Encounter for antineoplastic immunotherapy (principal); C77.2 Secondary and unspecified malignant neoplasm of intra-abdominal lymph nodes; Z85.43 Personal history of malignant neoplasm of ovary; Z79.899 Other long term (current) drug therapy; D70.9 Neutropenia, unspecified; D69.6 Thrombocytopenia, unspecified; T45.1X5A Adverse effect of antineoplastic and immunosuppressive drugs, initial encounter; I10 Essential (primary) hypertension; G62.9 Polyneuropathy, unspecified
CPT/HCPCS: 80053; 85025; 86304; 96413; 99214; J7050; Q5107

== ENCOUNTER 2025-03-26 08:00 | Oncology outpatient (recurring) (ONCR) | payer MEDICARE, SELFPAY ==
[2025-03-12 08:13] LABS: Basophils # 0.1 10^3/uL (0.0-0.1); Basophils % 1.2 %; Eosinophils # 0.3 10^3/uL (0.0-0.8); Eosinophils % 6.7 %; Hematocrit 33.7 % (36-47); Lymphocytes # 1.3 10^3/uL (0.8-4.8); Lymphocytes % 32.3 %; Mean Corpuscular HGB Conc 32.9 g/dL (30-55); Mean Corpuscular Hemoglobin 30.6 pg (27-33); Mean Corpuscular Volume 92.8 fl (85-98); Mean Platelet Volume 9.8 fL (7.4-10.4); Monocytes # 0.4 10^3/uL (0.2-0.9); Monocytes % 8.7 %; Neutrophils # 2.05 10^3/uL (1.8-7.7); Neutrophils % 51.1 %; Nucleated Red Blood Cells % 0 %; Platelet Count 139 10^3/cmm (157-399); Red Blood Count 3.63 10^6/uL (3.85-5.65); Red Cell Distribution Width 15.8 % (12.1-15.1); White Blood Count 4.02 10^3/uL (3.29-11.43)
[2025-03-12 08:53] LABS: Alanine Aminotransferase 13 U/L (0-33); Albumin Level 3.9 g/dL (3.5-5.2); Alkaline Phosphatase 95 U/L (35-105); Anion Gap 14.8 (5-19); Aspartate Amino Transferase 16 U/L (0-32); Blood Urea Nitrogen 22 mg/dL (8-23); CA 125 7.5 U/mL (0-35); Carbon Dioxide 23 mmol/L (22-29); Chloride 106 mmol/L (98-107); Creatinine Clr Calc Pharmacy 48.5353; Globulin 2.5 g/dL (1.3-4.6); Glucose 94 mg/dL (65-115); Osmolality Calculated 293 mOsm/kg (285-295); Potassium 3.8 mmol/L (3.5-5.1); Sodium 140 mmol/L (136-145); Total Bilirubin 0.3 mg/dL (0.15-1.2); Total Protein 6.4 g/dL (6.6-8.7)
[2025-03-12] MEDS: dextrose 5% 250 ML 75 ML IV (09:57)
[2025-03-12] MEDS: amlodipine 10 mg Tablet PO (10:00)
[2025-03-12] MEDS: OLANZapine 5 mg TABLET PO (10:00)
[2025-03-12] MEDS: famotidine 20 mg/2 mL INJ IVP (10:01)
[2025-03-12] MEDS: aprepitant 130 mg/18 ml SDV IVP (10:04)
[2025-03-12] MEDS: diphenhydrAMINE 50 mg/mL SDV 1mL 25 MG IVP (10:13)
[2025-03-12] MEDS: palonosetron 0.25 mg/5 mL SDV IVP (10:18)
[2025-03-12] MEDS: dexamethasone 4 mg/mL INJ 5 mL 12 MG IVP (10:21)
[2025-03-12] MEDS: DEXTROSE 5% IV (11:02)
[2025-03-12] MEDS: DOXORUBICIN LIPOSOMAL IV (11:02)
[2025-03-12] MEDS: sodium chloride 0.9% 250 ML 75 ML IV (12:03)
[2025-03-12] MEDS: SODIUM CHLORIDE 0.9% IV (12:04)
[2025-03-12] MEDS: CARBOPLATIN IV (12:04)
[2025-03-12] MEDS: pegfilgrastim 6 mg/0.6 mL Kit (onpro) SUBCUT (13:19)
[2025-03-12 13:24] VITALS: BP 176/79; PULSE 69; RESP 16; TEMP 36.1; O2SAT 95
[2025-03-26 08:32] LABS: Basophils # 0.1 10^3/uL (0.0-0.1); Basophils % 1.7 %; Eosinophils # 0.1 10^3/uL (0.0-0.8); Eosinophils % 4.5 %; Hematocrit 28.2 % (36-47); Lymphocytes % 35.9 %; Mean Corpuscular HGB Conc 33.3 g/dL (30-55); Mean Corpuscular Hemoglobin 30.9 pg (27-33); Mean Corpuscular Volume 92.8 fl (85-98); Mean Platelet Volume 10.2 fL (7.4-10.4); Monocytes # 0.2 10^3/uL (0.2-0.9); Monocytes % 6.9 %; Neutrophils # 1.46 10^3/uL (1.8-7.7); Neutrophils % 50.3 %; Nucleated Red Blood Cells % 0 %; Platelet Count 57 10^3/cmm (157-399); Red Blood Count 3.04 10^6/uL (3.85-5.65)
[2025-03-26 08:57] LABS: Alanine Aminotransferase 13 U/L (0-33); Albumin Level 3.8 g/dL (3.5-5.2); Alkaline Phosphatase 112 U/L (35-105); Anion Gap 13.7 (5-19); Aspartate Amino Transferase 16 U/L (0-32); Blood Urea Nitrogen 22 mg/dL (8-23); Calcium 9.1 mg/dL (8.5-10.5); Carbon Dioxide 27 mmol/L (22-29); Chloride 101 mmol/L (98-107); Globulin 2.8 g/dL (1.3-4.6); Glucose 129 mg/dL (65-115); Osmolality Calculated 291 mOsm/kg (285-295); Potassium 3.7 mmol/L (3.5-5.1); Sodium 138 mmol/L (136-145); Total Bilirubin 0.3 mg/dL (0.15-1.2); Total Protein 6.6 g/dL (6.6-8.7)
[2025-03-26] MEDS: sodium chloride 0.9% 250 ML IV (09:53)
[2025-03-26] MEDS: BEVACIZUMAB AWWB IV (09:54)
[2025-03-26] MEDS: SODIUM CHLORIDE 0.9% IV (09:54)
[2025-03-26 10:42] VITALS: BP 183/86; PULSE 72; RESP 16; TEMP 36.3; O2SAT 97
--- NOTE | 2025-03-26 10:45 | PC.NURSE ---
medication given and patient monitoring blood pressure at home
== END 2025-03-26 23:59 | disposition home or self-care (01) ==
PROVIDERS: Nurse Practitioner Family; PCP Family Medicine; Visit Provider Internal Medicine Medical Oncology
DX: Z53.9 Procedure and treatment not carried out, unspecified reason (principal); Z51.11 Encounter for antineoplastic chemotherapy; C48.1 Malignant neoplasm of specified parts of peritoneum; Z85.43 Personal history of malignant neoplasm of ovary; R03.0 Elevated blood-pressure reading, without diagnosis of hypertension; Z79.899 Other long term (current) drug therapy; D70.1 Agranulocytosis secondary to cancer chemotherapy; T45.1X5A Adverse effect of antineoplastic and immunosuppressive drugs, initial encounter; D75.9 Disease of blood and blood-forming organs, unspecified; D69.59 Other secondary thrombocytopenia; I10 Essential (primary) hypertension
CPT/HCPCS: 80053; 85025; 86304; 96372; 96375; 96377; 96413; 96417; 99214; J0185; J1100; J1200; J2469; J2506; J3490; J7040; J7050; J7060; J9045; J9999; Q2050; Q5107

== ENCOUNTER 2025-04-09 08:15 | Oncology outpatient (recurring) (ONCR) | payer MEDICARE, SELFPAY ==
--- NOTE | 2025-03-30 10:00 | PETR_ITS ---
PROCEDURE INFORMATION: Exam: PET/CT Skull Base to Mid-thigh Exam date and time: 03/30/2025 10:50 AM Age: 79 years old Clinical indication: Condition or disease; Primary cancer: Ovarian cancer; Prior surgery; Surgery date: 6+ months; Surgery type: Childbirths LABS AND CLINICAL REPORTS: Glucose: 121 mg/dl Treatment strategy for malignancy (PET staging): Restaging (PS) TECHNIQUE: Imaging protocol: Following at least four-hour fasting and following the injection of radiopharmaceutical, low dose CT images were obtained. Then, PET images were obtained. Attenuation corrected images were constructed using the CT scan. Fused images of PET and CT were reviewed. The standardized uptake values (SUV) reported below are maximum values within a region of interest, expressed in gm/ml. Exam includes orbital meatal line to mid-thigh. SUV normalization method: BodyWeight Radiopharmaceutical: 11.64 mCi F-18 FDG (Fluorodeoxyglucose), IV. Time of imaging post radiopharmaceutical administration: 46 minutes Injection site: left ac COMPARISON: CT abdomen pelvis wo con [id number] 05/16/2022 6:57 PM FINDINGS: Tubes, catheters and devices: Right chest port terminates at the SVC. Brain: Visualized brain has normal physiologic uptake. Pharynx: No abnormal uptake. Larynx: Symmetric FDG uptake without underlying CT abnormality is likely physiologic activation. Lungs, pleura and trachea: No abnormal uptake. Few stable non FDG avid sub 6 mm nodules at the lower lungs. Bilateral calcified granulomata. Heart: Normal physiologic uptake. Coronary arteries: Moderate coronary artery calcification. Mediastinal space: No abnormal uptake. Diaphragm: Moderate FDG uptake at small hiatal hernia. Liver: No abnormal uptake. Gallbladder and biliary ducts: No abnormal uptake. Prior cholecystectomy. Pancreas: No abnormal uptake. Spleen: No abnormal uptake. Adrenal glands: No abnormal uptake. Kidneys and ureters: Normal physiologic uptake. Stomach and bowel: No abnormal uptake. Colonic diverticulosis without findings of diverticulitis. Reproductive: The uterus is surgically absent. No pelvic mass. Vasculature: No abnormal uptake. 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 Lymph nodes: FDG uptake at nonenlarged mediastinal and bilateral hilar lymph nodes with index lower right paratracheal node showing calcification and SUV max 6.8 on axial image 81, right hilar uptake showing SUV max 7.8 on axial image 87, and left hilar uptake showing SUV max 5.5 on axial image 82. Skeleton: Low-level FDG uptake along the spine and pelvis without underlying CT abnormality is likely benign hyperplasia, possibly related to therapeutic treatment. Degenerative change along the axial skeletal system and bilateral acromioclavicular joints. Soft tissues: No abnormal uptake in the visualized head, neck, chest, abdomen, pelvis, and extremities. METRICS: Mediastinal blood pool: SUV mean 2.5 Liver uptake: SUV mean 2.9 PET/PET skull to thigh INIT [id number] IMPRESSION: 1. No abnormal radiotracer uptake at the abdomen or pelvis. 2. FDG uptake at nonenlarged mediastinal and bilateral hilar lymph nodes favored to be benign granulomatous, malignancy thought unlikely but difficult to entirely exclude. 3. Few stable non FDG avid sub 6 mm pulmonary nodules. 4. Moderate FDG uptake at small hiatal hernia is likely inflammatory. 5. 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
[2025-04-09 08:47] LABS: Basophils # 0.1 10^3/uL (0.0-0.1); Basophils % 1.5 %; Eosinophils # 0.1 10^3/uL (0.0-0.8); Eosinophils % 3.5 %; Hematocrit 30.3 % (36-47); Lymphocytes # 1.4 10^3/uL (0.8-4.8); Lymphocytes % 40.3 %; Mean Corpuscular HGB Conc 33.3 g/dL (30-55); Mean Corpuscular Hemoglobin 30.9 pg (27-33); Mean Corpuscular Volume 92.7 fl (85-98); Mean Platelet Volume 9.2 fL (7.4-10.4); Monocytes # 0.3 10^3/uL (0.2-0.9); Monocytes % 9.7 %; Neutrophils # 1.51 10^3/uL (1.8-7.7); Neutrophils % 44.4 %; Nucleated Red Blood Cells % 0 %; Platelet Count 224 10^3/cmm (157-399); Red Blood Count 3.27 10^6/uL (3.85-5.65); Red Cell Distribution Width 15.9 % (12.1-15.1)
[2025-04-09 09:33] LABS: Alanine Aminotransferase 10 U/L (0-33); Albumin Level 4.1 g/dL (3.5-5.2); Alkaline Phosphatase 85 U/L (35-105); Anion Gap 16.9 (5-19); Aspartate Amino Transferase 13 U/L (0-32); Blood Urea Nitrogen 28 mg/dL (8-23); Carbon Dioxide 23 mmol/L (22-29); Chloride 105 mmol/L (98-107); Creatinine Clr Calc Pharmacy 48.5353; Globulin 2.5 g/dL (1.3-4.6); Glucose 82 mg/dL (65-115); Osmolality Calculated 297 mOsm/kg (285-295); Potassium 3.9 mmol/L (3.5-5.1); Sodium 141 mmol/L (136-145); Total Bilirubin 0.3 mg/dL (0.15-1.2); Total Protein 6.6 g/dL (6.6-8.7)
[2025-04-09] MEDS: sodium chloride 0.9% 250 ML 75 ML IV (10:08)
[2025-04-09] MEDS: palonosetron 0.25 mg/5 mL SDV IVP (10:09)
[2025-04-09] MEDS: OLANZapine 5 mg TABLET PO (10:09)
[2025-04-09] MEDS: diphenhydrAMINE 50 mg/mL SDV 1mL 25 MG IVP (10:09)
[2025-04-09] MEDS: famotidine 20 mg/2 mL INJ IVP (10:12)
[2025-04-09] MEDS: dexamethasone 4 mg/mL INJ 5 mL 12 MG IVP (10:14)
[2025-04-09] MEDS: aprepitant 130 mg/18 ml SDV IVP (10:16)
[2025-04-09] MEDS: BEVACIZUMAB AWWB IV (10:47)
[2025-04-09] MEDS: SODIUM CHLORIDE 0.9% IV (10:47)
[2025-04-09 10:55] LABS: Bilirubin Urine Negative (Negative); Blood Urine Negative (Negative); Glucose Urine UA Negative (Normal); Ketones Urine Negative (Negative); Leukocyte Esterase Urine Trace (Negative); Nitrate Urine Negative (Negative); Protein Urine Trace (Negative); Specific Gravity, Urine 1.016 (1.005-1.030); Urine Appearance Clear (CLEAR); Urine Color Yellow (Yellow); pH Urine 5.5 (5-7)
[2025-04-09 10:58] LABS: Add Urine Microscopic? YES; Bacteria Urine None Seen /hpf; Hyaline Casts Urine 1.21 /lpf; RBC Urine 0-2 /hpf (0-2); Squamous Epithelial Cell Urine 0-5 /hpf (0-5); WBC Urine 0-5 /hpf (0-5)
[2025-04-09] MEDS: dextrose 5% 250 ML 75 ML IV (11:31)
[2025-04-09] MEDS: DOXORUBICIN LIPOSOMAL IV (11:32)
[2025-04-09] MEDS: DEXTROSE 5% IV (11:32)
--- NOTE | 2025-04-09 11:35 | PC.NURSE ---
doxrubcin liposomal 2nd check with Kelsi BERRY
[2025-04-09] MEDS: CARBOplatin 530 MG in sodium chloride 0.9% 500 ML 553 MG IV (12:46)
[2025-04-09] MEDS: pegfilgrastim 6 mg/0.6 mL Kit (onpro) SUBCUT (14:08)
[2025-04-09 14:12] VITALS: BP 177/80; PULSE 69; RESP 16; TEMP 35.8; O2SAT 95
--- NOTE | 2025-04-09 14:14 | PC.NURSE ---
monitors blood pressure at home
== END 2025-04-09 23:59 | disposition home or self-care (01) ==
PROVIDERS: Nurse Practitioner Family; PCP Family Medicine; Visit Provider Internal Medicine Medical Oncology
DX: Z53.9 Procedure and treatment not carried out, unspecified reason; Z51.11 Encounter for antineoplastic chemotherapy; C78.6 Secondary malignant neoplasm of retroperitoneum and peritoneum; Z85.43 Personal history of malignant neoplasm of ovary; R03.0 Elevated blood-pressure reading, without diagnosis of hypertension; D75.9 Disease of blood and blood-forming organs, unspecified; Z79.52 Long term (current) use of systemic steroids
CPT/HCPCS: 78815; 80053; 81001; 85025; 86304; 96372; 96375; 96377; 96413; 96417; 99214; A9552; J0185; J1100; J1200; J2469; J2506; J3490; J7040; J7050; J7060; J9045; J9999; Q2050; Q5107

== ENCOUNTER 2025-05-07 08:30 | Oncology outpatient (recurring) (ONCR) | payer MEDICARE, SELFPAY ==
[2025-04-23 08:30] LABS: Hematocrit 25.1 % (36-47); Hemoglobin 8.50 g/dL (11.27-16.99); Mean Corpuscular HGB Conc 33.9 g/dL (30-55); Mean Corpuscular Hemoglobin 31.6 pg (27-33); Mean Corpuscular Volume 93.3 fl (85-98); Nucleated Red Blood Cells % 0 %; Red Blood Count 2.69 10^6/uL (3.85-5.65); White Blood Count 3.47 10^3/uL (3.29-11.43)
[2025-04-23 08:52] LABS: Platelet Count 28 10^3/cmm (157-399); Slide Review Slide Review Perform
[2025-04-23 08:57] LABS: Alanine Aminotransferase 17 U/L (0-33); Albumin Level 4.1 g/dL (3.5-5.2); Alkaline Phosphatase 109 U/L (35-105); Anion Gap 16.6 (5-19); Aspartate Amino Transferase 16 U/L (0-32); Blood Urea Nitrogen 33 mg/dL (8-23); CA 125 7.2 U/mL (0-35); Calcium 9.1 mg/dL (8.5-10.5); Carbon Dioxide 22 mmol/L (22-29); Chloride 103 mmol/L (98-107); Creatinine Clr Calc Pharmacy 36.2945; Globulin 2.5 g/dL (1.3-4.6); Glucose 101 mg/dL (65-115); Osmolality Calculated 293 mOsm/kg (285-295); Potassium 3.6 mmol/L (3.5-5.1); Sodium 138 mmol/L (136-145); Total Protein 6.6 g/dL (6.6-8.7)
[2025-04-23] MEDS: SODIUM CHLORIDE 0.9% IV (10:32)
[2025-04-23] MEDS: BEVACIZUMAB AWWB IV (10:32)
[2025-04-23 11:44] VITALS: BP 185/68; PULSE 72; RESP 17; TEMP 37.1; O2SAT 97
[2025-05-07 08:49] LABS: Hematocrit 25.1 % (36-47); Hemoglobin 8.20 g/dL (11.27-16.99); Mean Corpuscular HGB Conc 32.7 g/dL (30-55); Mean Corpuscular Hemoglobin 32.0 pg (27-33); Mean Corpuscular Volume 98.0 fl (85-98); Nucleated Red Blood Cells % 0 %; Platelet Count 109 10^3/cmm (157-399); Red Blood Count 2.56 10^6/uL (3.85-5.65); White Blood Count 3.68 10^3/uL (3.29-11.43)
[2025-05-07 09:08] LABS: Alanine Aminotransferase 16 U/L (0-33); Albumin Level 4.0 g/dL (3.5-5.2); Alkaline Phosphatase 86 U/L (35-105); Anion Gap 15.9 (5-19); Aspartate Amino Transferase 22 U/L (0-32); Blood Urea Nitrogen 28 mg/dL (8-23); Calcium 9.0 mg/dL (8.5-10.5); Carbon Dioxide 24 mmol/L (22-29); Chloride 104 mmol/L (98-107); Creatinine Clr Calc Pharmacy 39.7107; Globulin 2.6 g/dL (1.3-4.6); Glucose 111 mg/dL (65-115); Osmolality Calculated 296 mOsm/kg (285-295); Potassium 3.9 mmol/L (3.5-5.1); Sodium 140 mmol/L (136-145); Total Protein 6.6 g/dL (6.6-8.7)
[2025-05-07 09:21] LABS: Glucose Urine UA Negative (Normal); Nitrate Urine Negative (Negative); Specific Gravity, Urine 1.013 (1.005-1.030)
[2025-05-07 09:26] LABS: Add Urine Microscopic? YES
[2025-05-07 09:35] LABS: CA 125 7.5 U/mL (0-35)
[2025-05-07] MEDS: aprepitant 130 mg/18 ml SDV IVP (10:24)
[2025-05-07] MEDS: diphenhydrAMINE 50 mg/mL SDV 1mL 25 MG IVP (10:24)
[2025-05-07] MEDS: dexamethasone 4 mg/mL INJ 5 mL 12 MG IVP (10:35)
[2025-05-07] MEDS: DEXTROSE 5% IV (11:29)
[2025-05-07] MEDS: DOXORUBICIN LIPOSOMAL IV (11:29)
[2025-05-07] MEDS: CARBOplatin 300 MG in sodium chloride 0.9% 500 ML 530 MG IV (12:48)
[2025-05-07] MEDS: SODIUM CHLORIDE 0.9% IV (14:41)
[2025-05-07] MEDS: BEVACIZUMAB AWWB IV (14:41)
[2025-05-07 15:28] VITALS: BP 176/79; PULSE 76; RESP 18; TEMP 36.9; O2SAT 98
[2025-05-07] MEDS: pegfilgrastim 6 mg/0.6 mL Kit (onpro) SUBCUT (15:35)
== END 2025-05-07 23:59 | disposition home or self-care (01) ==
PROVIDERS: PCP Family Medicine; Visit Provider Internal Medicine Medical Oncology
DX: Z53.9 Procedure and treatment not carried out, unspecified reason; Z51.11 Encounter for antineoplastic chemotherapy; Z51.12 Encounter for antineoplastic immunotherapy; C56.1 Malignant neoplasm of right ovary; C76.2 Malignant neoplasm of abdomen; I10 Essential (primary) hypertension; Z79.899 Other long term (current) drug therapy; Z79.52 Long term (current) use of systemic steroids; D69.6 Thrombocytopenia, unspecified; T45.1X5A Adverse effect of antineoplastic and immunosuppressive drugs, initial encounter
CPT/HCPCS: 80053; 81001; 85025; 86304; 87086; 96375; 96377; 96413; 96417; 99214; J0185; J1100; J1200; J2469; J2506; J3490; J7040; J7050; J7060; J9045; J9999; Q2050; Q5107

== ENCOUNTER 2025-06-04 08:00 | Oncology outpatient (recurring) (ONCR) | payer MEDICARE, SELFPAY ==
[2025-05-21 07:40] LABS: Hematocrit 24.7 % (36-47); Hemoglobin 8.30 g/dL (11.27-16.99); Mean Corpuscular HGB Conc 33.6 g/dL (30-55); Mean Corpuscular Hemoglobin 33.6 pg (27-33); Mean Corpuscular Volume 100.0 fl (85-98); Nucleated Red Blood Cells % 0 %; Platelet Count 48 10^3/cmm (157-399); Red Blood Count 2.47 10^6/uL (3.85-5.65); White Blood Count 5.96 10^3/uL (3.29-11.43)
[2025-05-21 08:03] LABS: Anion Gap 16.0 (5-19); Carbon Dioxide 24 mmol/L (22-29); Chloride 103 mmol/L (98-107); Potassium 4.0 mmol/L (3.5-5.1); Sodium 139 mmol/L (136-145)
[2025-05-21 08:04] LABS: Alanine Aminotransferase 25 U/L (0-33); Albumin Level 4.2 g/dL (3.5-5.2); Alkaline Phosphatase 131 U/L (35-105); Aspartate Amino Transferase 28 U/L (0-32); Blood Urea Nitrogen 24 mg/dL (8-23); Calcium 8.9 mg/dL (8.5-10.5); Ferritin 463 ng/mL (15-150); Globulin 2.6 g/dL (1.3-4.6); Glucose 108 mg/dL (65-115); Iron 82 ug/dL (37-145); Osmolality Calculated 293 mOsm/kg (285-295); Total Iron Binding Capacity 255 mcg/dl; Total Protein 6.8 g/dL (6.6-8.7); Unsaturated Iron Binding 173 ug/dL (112-347)
[2025-05-21 08:27] LABS: Vitamin B12 > 2000 pg/mL (232-1245)
[2025-05-21] MEDS: BEVACIZUMAB AWWB IV (10:10)
[2025-05-21] MEDS: SODIUM CHLORIDE 0.9% IV (10:10)
[2025-05-21 10:46] VITALS: BP 184/75; PULSE 75; RESP 18; TEMP 36.6; O2SAT 96
[2025-06-04] VITALS (11 sets, daily range): BP systolic 166–189; BP diastolic 67–91; PULSE 65–91; RESP 16–17; TEMP 36.7–37.4; O2SAT 94–98
[2025-06-04 08:20] LABS: Hematocrit 24.3 % (36-47); Hemoglobin 7.80 g/dL (11.27-16.99); Mean Corpuscular HGB Conc 32.1 g/dL (30-55); Mean Corpuscular Hemoglobin 33.9 pg (27-33); Mean Corpuscular Volume 105.7 fl (85-98); Nucleated Red Blood Cells % 0 %; Platelet Count 93 10^3/cmm (157-399); Red Blood Count 2.30 10^6/uL (3.85-5.65); White Blood Count 5.57 10^3/uL (3.29-11.43)
[2025-06-04 08:40] LABS: Alanine Aminotransferase 23 U/L (0-33); Albumin Level 3.9 g/dL (3.5-5.2); Alkaline Phosphatase 96 U/L (35-105); Anion Gap 14.5 (5-19); Aspartate Amino Transferase 25 U/L (0-32); Blood Urea Nitrogen 29 mg/dL (8-23); Calcium 8.8 mg/dL (8.5-10.5); Carbon Dioxide 25 mmol/L (22-29); Chloride 106 mmol/L (98-107); Creatinine Clr Calc Pharmacy 39.5086; Globulin 2.3 g/dL (1.3-4.6); Glucose 138 mg/dL (65-115); Osmolality Calculated 302 mOsm/kg (285-295); Potassium 3.5 mmol/L (3.5-5.1); Sodium 142 mmol/L (136-145); Total Protein 6.2 g/dL (6.6-8.7)
== END 2025-06-10 23:59 | disposition home or self-care (01) ==
PROVIDERS: Nurse Practitioner Family; PCP Family Medicine; Visit Provider Internal Medicine Medical Oncology
DX: C76.2 Malignant neoplasm of abdomen; C56.9 Malignant neoplasm of unspecified ovary; D64.9 Anemia, unspecified; R03.0 Elevated blood-pressure reading, without diagnosis of hypertension; Z79.899 Other long term (current) drug therapy; Z53.9 Procedure and treatment not carried out, unspecified reason
CPT/HCPCS: 36430; 80053; 82607; 82728; 82746; 83540; 83550; 85025; 86850; 86900; 86920; 96413; 99214; J7050; J9999; P9040; Q5107

== ENCOUNTER 2025-06-26 08:00 | Oncology outpatient (recurring) (ONCR) | payer MEDICARE, SELFPAY ==
[2025-06-12 07:38] LABS: Hematocrit 29.9 % (36-47); Hemoglobin 10.00 g/dL (11.27-16.99); Mean Corpuscular HGB Conc 33.4 g/dL (30-55); Mean Corpuscular Hemoglobin 32.8 pg (27-33); Mean Corpuscular Volume 98.0 fl (85-98); Nucleated Red Blood Cells % 0 %; Platelet Count 65 10^3/cmm (157-399); Red Blood Count 3.05 10^6/uL (3.85-5.65); White Blood Count 6.14 10^3/uL (3.29-11.43)
[2025-06-12 08:04] LABS: Alanine Aminotransferase 27 U/L (0-33); Albumin Level 3.9 g/dL (3.5-5.2); Alkaline Phosphatase 99 U/L (35-105); Anion Gap 13.5 (5-19); Aspartate Amino Transferase 30 U/L (0-32); Blood Urea Nitrogen 23 mg/dL (8-23); CA 125 7.1 U/mL (0-35); Calcium 9.1 mg/dL (8.5-10.5); Carbon Dioxide 25 mmol/L (22-29); Chloride 104 mmol/L (98-107); Globulin 2.6 g/dL (1.3-4.6); Glucose 97 mg/dL (65-115); Osmolality Calculated 292 mOsm/kg (285-295); Potassium 3.5 mmol/L (3.5-5.1); Sodium 139 mmol/L (136-145); Total Protein 6.5 g/dL (6.6-8.7)
[2025-06-12 08:09] LABS: Glucose Urine UA Negative (Normal); Nitrate Urine Negative (Negative); Specific Gravity, Urine 1.015 (1.005-1.030)
[2025-06-12 08:15] LABS: Add Urine Microscopic? YES; Universal Test for UA Present (0)
[2025-06-12 09:21] LABS: UA Slide Review UA Slide Review Perf
[2025-06-19 09:24] LABS: Hematocrit 28.9 % (36-47); Hemoglobin 9.70 g/dL (11.27-16.99); Mean Corpuscular HGB Conc 33.6 g/dL (30-55); Mean Corpuscular Hemoglobin 32.4 pg (27-33); Mean Corpuscular Volume 96.7 fl (85-98); Nucleated Red Blood Cells % 0 %; Platelet Count 49 10^3/cmm (157-399); Red Blood Count 2.99 10^6/uL (3.85-5.65); White Blood Count 6.63 10^3/uL (3.29-11.43)
[2025-06-19 09:42] LABS: Alanine Aminotransferase 21 U/L (0-33); Albumin Level 4.0 g/dL (3.5-5.2); Alkaline Phosphatase 103 U/L (35-105); Anion Gap 11.9 (5-19); Aspartate Amino Transferase 29 U/L (0-32); Blood Urea Nitrogen 24 mg/dL (8-23); Calcium 8.8 mg/dL (8.5-10.5); Carbon Dioxide 25 mmol/L (22-29); Chloride 109 mmol/L (98-107); Globulin 2.7 g/dL (1.3-4.6); Glucose 112 mg/dL (65-115); Osmolality Calculated 299 mOsm/kg (285-295); Potassium 3.9 mmol/L (3.5-5.1); Sodium 142 mmol/L (136-145); Total Protein 6.7 g/dL (6.6-8.7)
[2025-06-26 08:03] LABS: Hematocrit 29.0 % (36-47); Hemoglobin 9.60 g/dL (11.27-16.99); Mean Corpuscular HGB Conc 33.1 g/dL (30-55); Mean Corpuscular Hemoglobin 32.3 pg (27-33); Mean Corpuscular Volume 97.6 fl (85-98); Nucleated Red Blood Cells % 0 %; Platelet Count 63 10^3/cmm (157-399); Red Blood Count 2.97 10^6/uL (3.85-5.65); White Blood Count 5.76 10^3/uL (3.29-11.43)
[2025-06-26 08:28] LABS: Alanine Aminotransferase 18 U/L (0-33); Albumin Level 4.1 g/dL (3.5-5.2); Alkaline Phosphatase 102 U/L (35-105); Anion Gap 16.9 (5-19); Aspartate Amino Transferase 22 U/L (0-32); Blood Urea Nitrogen 17 mg/dL (8-23); Calcium 9.4 mg/dL (8.5-10.5); Carbon Dioxide 24 mmol/L (22-29); Chloride 103 mmol/L (98-107); Creatinine Clr Calc Pharmacy 48.1477; Globulin 2.5 g/dL (1.3-4.6); Glucose 118 mg/dL (65-115); Osmolality Calculated 293 mOsm/kg (285-295); Potassium 3.9 mmol/L (3.5-5.1); Sodium 140 mmol/L (136-145); Thyroid Stimulating Hormone 4.25 uIU/mL (0.27-4.20); Total Protein 6.6 g/dL (6.6-8.7)
== END 2025-07-10 23:59 | disposition home or self-care (01) ==
PROVIDERS: Nurse Practitioner; PCP Family Medicine; Visit Provider Internal Medicine Medical Oncology
DX: C56.9 Malignant neoplasm of unspecified ovary; C77.2 Secondary and unspecified malignant neoplasm of intra-abdominal lymph nodes; R53.83 Other fatigue; G62.9 Polyneuropathy, unspecified; R68.89 Other general symptoms and signs; D69.6 Thrombocytopenia, unspecified; R03.0 Elevated blood-pressure reading, without diagnosis of hypertension; Z79.899 Other long term (current) drug therapy; Z53.9 Procedure and treatment not carried out, unspecified reason
CPT/HCPCS: 80053; 81001; 84443; 85025; 86304; 99214

== ENCOUNTER 2025-07-23 14:50 | Emergency (ER) | payer MEDICARE, SELFPAY ==
[2025-07-23 15:02] VITALS: BP 223/107; PULSE 96; RESP 18; TEMP 36.4; O2SAT 96; BMI 27.1
--- NOTE | 2025-07-23 15:03 | XRR_ITS ---
PROCEDURE INFORMATION: Exam: XR Abdomen Exam date and time: 07/23/2025 3:24 PM Age: 80 years old Clinical indication: Abdominal pain; Generalized TECHNIQUE: Imaging protocol: Radiologic exam of the abdomen. Views: 2 Views. Upright and supine views. COMPARISON: PT PET skull to thigh SUBS [id number] 07/13/2025 11:33 AM FINDINGS: Tubes, catheters and devices: Right-sided port a catheter terminating in the superior vena cava. Gastrointestinal tract: No bowel dilation. There is somewhat prominent fecal material throughout the colon and rectum. Intraperitoneal space: Surgical clips in the right upper quadrant. Bones/joints: Unremarkable for age. XR/XR acute abdomen series [id number] IMPRESSION: Prominent fecal material throughout the colon and rectum.
--- NOTE | 2025-07-23 15:09 | W.ED.ABDPA2 ---
HPI - Abdominal Pain General: Chief Complaint: Abdominal Pain Stated Complaint: abd pain, constipation Time Seen by Provider: 07/23/25 15:08 History of Present Illness: 80-year-old female who presents emergency room clinic abdominal pain crampy has been very constipated she tried various home remedies without relief. She has been using narcotics she has a history of ovarian cancer. She denies any medic easier melena. No dysuria urgency or frequency recently had a mild cystitis which she has completed treatment for Associated Symptoms: Reports constipation and GI cramping; Denies chills, coffee ground emesis, dysuria, fever(s), hematochezia, hematemesis and melena Related Data Home Medications ?Medication ?Instructions ?Recorded ?Confirmed Healthy Feet and Nerves Supplement 2 cap PO 1XD 08/17/23 06/26/25 cholecalciferol (vitamin D3) 62.5 2,500 mcg PO DAILY 10/19/23 06/26/25 mcg (2,500 unit) capsule acetaminophen 500 mg tablet mg PO 06/04/25 06/26/25 amlodipine 10 mg tablet mg PO 06/04/25 06/26/25 aspirin 81 mg tablet,delayed mg PO 06/04/25 06/26/25 release oxycodone 5 mg tablet mg PO PRN 06/04/25 06/26/25 sennosides 8.6 mg tablet (senna) mg PO 06/04/25 06/26/25 Previous Rx's ?Medication ?Instructions ?Recorded naproxen sodium 220 mg capsule 440 mg (2 x 220 mg) PO Q12H PRN 12/17/22 (Aleve) pain 14 days #60 caps AFO orthosis #1 ea 03/05/23 ondansetron HCl 4 mg tablet 4 mg PO Q6H PRN nausea and 12/28/24 vomiting #30 tabs prochlorperazine maleate 10 mg 10 mg PO Q4H PRN mild nausea #30 12/28/24 tablet (Compazine) tabs lorazepam 1 mg tablet 0.5 - 1 mg (0.5 - 1 x 1 mg) PO Q6H 01/10/25 PRN severe nausea #30 tabs cefdinir 300 mg capsule 300 mg PO BID 14 days #28 caps 02/16/25 lactulose 10 gram/15 mL oral 30 ml PO Q2H PRN constipation 72 07/23/25 solution (Generlac) hours #1,080 mL polyethylene glycol 3350 17 8.5 g PO BID #850 grams 07/23/25 gram/dose oral powder (ClearLax) Allergies Allergy/AdvReac Type Severity Reaction Status Date / Time No Known Allergies Allergy Verified 07/23/25 15:06 Review of Systems Const: Denies: fever(s) or chills Card: Denies: chest pain Resp: Denies: dyspnea GI: Reports: abdominal pain, constipation and GI cramping; Denies: hematemesis, coffee ground emesis, hematochezia or melena : Denies: dysuria, urinary frequency or urinary urgency Musc: Denies: neck pain or back pain Skin/Breast: Denies: rash PFSH ED PFSH: Medical History Ovarian cancer Recurrent Seasonal allergies Vitamin D deficiency Secondary malignant neoplasm of omentum Hypertension Neuropathy Debility Metastatic disease Surgical History History of cholecystectomy History of colonoscopy She has had a prior colonoscopy, but she does not recall when it was done. Family History Son Cancer Diabetes Unknown CAD (coronary artery disease) Cancer Sister Lung disease Denies family history of Clotting disorder Dementia Hyperlipidemia Psychiatric illness Chronic kidney disease (CKD) Suicide Anesthesia complication Bleeding disorder Hypertension Stroke Social History Smoking and tobacco/nicotine status: never used tobacco/nicotine Alcohol intake: never Substance/Drug Use: never Marital status: Physical Exam Const: GENERAL APPEARANCE: cooperative ORIENTATION/CONSCIOUSNESS: Yes awake, Yes oriented to person, Yes oriented to place and Yes oriented to time HENMT: COMMON NORMALS: normocephalic, atraumatic and hearing grossly normal bilaterally HEAD & SCALP: normocephalic and atraumatic Resp: COMMON NORMALS: normal respiratory effort, No retractions, No use of accessory muscles and clear to auscultation bilaterally AUSCULTATION: clear to auscultation bilaterally Cardio: COMMON NORMALS: regular rate, regular rhythm and No murmurs present (Cardio) RATE: regular rate RHYTHM: regular rhythm GI: COMMON NORMALS: Soft to palpation and No hepatosplenomegaly present AUSCULTATION: Yes normoactive bowel sounds PALPATION: Yes Soft to palpation, Yes Tenderness to palpation present (GI) (Mild diffuse tenderness no acute abdomen), No Guarding due to palpation present (GI) and Yes No hepatosplenomegaly present Extremity: COMMON NORMALS: normal to inspection, capillary refill normal, no clubbing, cyanosis or edema, no calf tenderness and no pedal edema Neuro: SENSORIUM/ORIENTATION: Yes oriented to person, Yes oriented to place and Yes oriented to time Skin: COMMON NORMALS: no rashes or lesions noted GENERAL SKIN EXAM: no rashes or lesions noted Course Vital Signs: Vital signs: Vital Signs Temperature 97.6 F 07/23/25 15:02 Pulse Rate 82 07/23/25 15:29 Respiratory Rate 16 07/23/25 15:29 Blood Pressure 172/85 07/23/25 15: Pulse Oximetry 98 07/23/25 15:29 Oxygen Delivery Me thod Room Air 07/23/25 15:29 MDM - Abdominal Pain Medical Decision Making Labs and imaging reviewed no acute findings. She patient is anemic this is chronic. She does have significant amount of retained stool. We treated with enema discharged home with lactulose to use as needed encouraged regular use of MiraLAX for prevention of constipation. Medical Records I reviewed the patient's medical records. Lab Data I reviewed the patient's lab results. 07/23/25 15:14 07/23/25 15:14 Labs/Radiology: Laboratory Results WBC 8.46 10^3/uL (3.29-11.43) 07/23/25 15:14 RBC 3.37 10^6/uL (3.85-5.65) L 07/23/25 15:14 Hgb 10.80 g/dL (11.27-16.99) L 07/23/25 15:14 Hct 31.9 % (36-47) L 07/23/25 15:14 MCV 94.7 fl (85-98) 07/23/25 15:14 MCH 32.0 pg (27-33) 07/23/25 15:14 MCHC 33.9 g/dL (30-55) 07/23/25 15:14 RDW 13.4 % (12.1-15.1) 07/23/25 15:14 Plt Count 89 10^3/cmm (157-399) L 07/23/25 15:14 MPV 9.3 fL (7.4-10.4) 07/23/25 15:14 Neut % (Auto) 86.5 % 07/23/25 15:14 Lymph % (Auto) 9.5 % 07/23/25 15:14 Dillon % (Auto) 3.2 % 07/23/25 15:14 Eos % (Auto) 0.2 % 07/23/25 15:14 Baso % (Auto) 0.2 % 07/23/25 15:14 Neut # (Auto) 7.32 10^3/uL (1.8-7.7) 07/23/25 15:14 Lymph # (Auto) 0.8 10^3/uL (0.8-4.8) 07/23/25 15:14 Dillon # (Auto) 0.3 10^3/uL (0.2-0.9) 07/23/25 15:14 Eos # (Auto) 0.0 10^3/uL (0.0-0.8) 07/23/25 15:14 Baso # (Auto) 0.0 10^3/uL (0.0-0.1) 07/23/25 15:14 Nucleated RBC % (auto) 0 % 07/23/25 15:14 Nucleated RBCs # 0.0 /100WBC 07/23/25 15:14 Sodium 139 mmol/L (136-145) 07/23/25 15:14 Potassium 3.4 mmol/L (3.5-5.1) L 07/23/25 15:14 Chloride 100 mmol/L (98-107) 07/23/25 15:14 Carbon Dioxide 24 mmol/L (22-29) 07/23/25 15:14 Anion Gap 18.4 (5-19) 07/23/25 15:14 BUN 27 mg/dL (8-23) H 07/23/25 15:14 Creatinine 1.0 mg/dL (0.5-0.9) H 07/23/25 15:14 GFR Calculation Not Reportable 07/23/25 15:14 Glucose 144 mg/dL (65-115) H 07/23/25 15:14 Calculated Osmolality 296 mOsm/kg (285-295) H 07/23/25 15:14 Calcium 9.3 mg/dL (8.5-10.5) 07/23/25 15:14 Total Bilirubin 0.7 mg/dL (0.15-1.2) 07/23/25 15:14 AST 21 U/L (0-32) 07/23/25 15:14 ALT 14 U/L (0-33) 07/23/25 15:14 Alkaline Phosphatase 102 U/L (35-105) 07/23/25 15:14 Total Protein 7.4 g/dL (6.6-8.7) 07/23/25 15:14 Albumin 4.8 g/dL (3.5-5.2) 07/23/25 15:14 Globulin 2.6 g/dL (1.3-4.6) 07/23/25 15:14 Urine Color Yellow (Yellow) 07/23/25 15:25 Urine Appearance Clear (CLEAR) 07/23/25 15:25 Urine pH 5.0 (5-7) 07/23/25 15:25 Ur Specific Baldwin 1.014 (1.005-1.030) 07/23/25 15: Urine Protein 2+ (Negative) A 07/23/25 15: Urine Glucose (UA) Negative (Normal) 07/23/25 15:25 Urine Ketones Negative (Negative) 07/23/25 15:25 Urine Blood Negative (Negative) 07/23/25 15:25 Urine Nitrate Negative (Negative) 07/23/25:25 Urine Bilirubin Negative (Negative) 07/23/25 15:25 Urine Urobilinogen 0.2 mg/dL (Negative) 07/23/25 15:25 Ur Leukocyte Esterase Negative (Negative) 07/23/25 15:25 Urine RBC None /hpf (0-2) 07/23/25 15:25 Urine WBC 0-4 /hpf (0-5) H 07/23/25 15:25 Ur Squamous Epith Cells None /hpf (0-5) 07/23/25 15:25 Amorphous Sediment Trace /hpf 07/23/25 15:25 Urine Bacteria None /hpf (NONE) 07/23/25 15:25 Hyaline Casts 0-4 /lpf H 07/23/25 15:25 Fine Granular Casts 0-4 /lpf H 07/23/25 15:25 Urine Mucus Trace /hpf 07/23/25 15:25 XR interpretation done by ED provider, pending radiology final review ED provider radiology interpretation(s): Acute abdomen series nonspecific bowel gas pattern large amount of retained stool particularly in the rectum no signs of bowel obstruction no air-fluid levels Discharge Plan Discharge Patient Disposition: Home Clinical Impression: Constipation Condition: Stable Prescriptions: New lactulose [Generlac] 10 gram/15 mL solution 30 ml PO Q2H PRN (Reason: constipation) 3 Days Qty: 1080 0RF Rx Instructions: until desired laxative effect polyethylene glycol 3350 [ClearLax] 17 gram/dose powder 8.5 g PO BID Qty: 850 0RF No Action naproxen sodium [Aleve] 220 mg capsule 440 mg PO Q12H PRN (Reason: pain) 14 Days Qty: 60 0RF Healthy Feet and Nerves Supplement 2 cap PO 1XD cefdinir 300 mg capsule 300 mg PO BID 14 Days Qty: 28 0RF aspirin 81 mg tablet,delayed release (DR/EC) PO sennosides [senna] 8.6 mg tablet PO acetaminophen 500 mg tablet PO amlodipine 10 mg tablet PO oxycodone 5 mg tablet PO PRN cholecalciferol (vitamin D3) 62.5 mcg (2,500 unit) capsule 2,500 mcg PO DAILY Adacel(Tdap Adolesn/Adult)(PF) 2 Lf-(2.5-5-3-5 mcg)-5Lf/0.5 mL suspension 0.5 ml IM ONCE Qty: 1 0RF lorazepam 1 mg tablet 0.5 - 1 mg PO Q6H PRN (Reason: severe nausea) Qty: 30 3RF (DME) AFO orthosis See Rx Instructions .Route .MEDSUPPLY Qty: 1 0RF Rx Instructions: As directed prochlorperazine maleate [Compazine] 10 mg tablet 10 mg PO Q4H PRN (Reason: mild nausea) Qty: 30 3RF ondansetron HCl 4 mg tablet 4 mg PO Q6H PRN (Reason: nausea and vomiting) Qty: 30 3RF Discharge Orders: Discharge ED (Routine); Ordered 07/23/25 Ordered By: Kade Rosenthal Referrals: Raoul Rai MD [Primary Care Provider, Family Practice] Discharge Diet: Clear Liquid Discharge Activity: Increase activity as tolerated Patient Instructions: Opioid Safety, Pain Management, Patient Portal & Lucho Instructions Activity Restrictions/Additional Instructions: Thank you for choosing [facility] for your healthcare needs today. It is very important that you follow up as instructed or that you return to the Emergency Department should you have concerns or if your condition changes or worsens in any way. Emergency department visits are focused on emergent conditions, in some cases you may require further evaluation on an outpatient basis. You were seen in the emergency room with complaints constipation. Your laboratory test did not show any significant abnormalities. X-ray of your abdomen did show significant amount of retained stool. Recommend you avoid bulk building stool softener such as Senokot Metamucil etc. instead started on polyethylene glycol half of a capful twice a day you can increase or decrease the medicine every 5 to 7 days to achieve desired effect. For relief of your immediate constipation recommend lactulose take 30 mL every 2 hours until you have desired effect. (Please note that included in your discharge packet is information concerning opioid safety and pain management. This information is given to all patients were discharged from the ER regardless of their discharge diagnosis or the medicines they usually take or are prescribed.) Print Language: Tunisian Coding Level of Care Code ED Central Office Inspector for Marciano Eden
--- OUTSIDE RECORDS SUMMARY | 2025-07-23 15:11 | XMS_ITS | Clinical Summary ---
Author Organization [facility] Address [address] [facility] Attn: [place] [address] Care Team Providers Care Floatlight Powder Mixer Name Role Phone Kedar Ortiz MD Primary Care Provider Unavailab le Social History Tobacco Use Types Packs/Day Years Used Date Smoking Tobacco: Never Assessed Comments Unknown Sex and Gender Information Value Date Recorded Sex Assigned at Not on file Legal Sex Female 6:24 AM [facility] Gender Identity Not on file Sexual Orientation Not on file Plan of Treatment Health Maintenance Due Date Last Done Comments DTAP/TDAP/TD VACCINES (1 - Tdap) 1963 PNEUMOCOCCAL VACCINE 50+ YEARS (1 of 1 - PCV) 06/04/19 94 ZOSTER VACCINE (1 of 2) 1994 OSTEOPOROSIS SCREENING 2009 RSV VACCINE (60+ or ) (1 - 1-dose 75+ series) 2019 INFLUENZA VACCINE (#1) 2025 COLORECTAL SCREENING Discontinued 06/03/2007 Colorectal Cancer Screening Discontinued FIT-DNA Q 3 years Discontinued FIT/FOBT Q 1 year Discontinued Flex Sig/CT Colonography Q 5 years Discontinued Care Teams Floatlight Powder Mixer Relationship Specialty Start Date End Date Kedar Ortiz MD NO ADDRESS ON FILE PCP - General 06/03/07
--- OUTSIDE RECORDS SUMMARY | 2025-07-23 15:11 | XMS_ITS | Encounter Summary ---
Author Organization [facility] Address [address] [place] [address] Care Team Providers Care Timekeeper Name Role Phone Kedar Ortiz MD Primary Care Provider Unavailab le Encounter Details Date Type Department Care Team (Late st Contact Info) Description 06/03/2007 Outpatient Historical [facility] End[facility] [address] [place] [phone] Enrike Mtz MD [address] [place] [address] Disability Determination Services [place], [place] [id number] Family History of Malignant Neoplasm of Gastrointestinal Tract (Primary Dx) Social History Tobacco Use Types Packs/Day Years Used Date Smoking Tobacco: Never Assessed Comments Unknown Sex and Gender Information Value Date Recorded Sex Assigned at Not on file 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
--- OUTSIDE RECORDS SUMMARY | 2025-07-23 15:11 | XMS_ITS | Encounter Summary ---
Author Organization [facility] Address [address] [place] [address] Care Team Providers Care Pipe Cutter Name Role Phone Kedar Ortiz MD Primary Care Provider Unavailab le Encounter Details Date Type Department Care Team (Late st Contact Info) Description 06/03/2007 Outpatient Historical [facility] [address] [place] [phone] Enrike Mtz MD [address] [place] [address] Disability Determination Services [place], [place] [id number] Family History of Malignant Neoplasm of Gastrointestinal Tract (Primary Dx) Social History Tobacco Use Types Packs/Day Years Used Date Smoking Tobacco: Never Assessed Comments Unknown Sex and Gender Information Value Date Recorded Sex Assigned at Not on file 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
[2025-07-23 15:25] LABS: Hematocrit 31.9 % (36-47); Hemoglobin 10.80 g/dL (11.27-16.99); Mean Corpuscular HGB Conc 33.9 g/dL (30-55); Mean Corpuscular Hemoglobin 32.0 pg (27-33); Mean Corpuscular Volume 94.7 fl (85-98); Nucleated Red Blood Cells % 0 %; Platelet Count 89 10^3/cmm (157-399); Red Blood Count 3.37 10^6/uL (3.85-5.65); White Blood Count 8.46 10^3/uL (3.29-11.43)
[2025-07-23 15:29] VITALS: BP 172/85; PULSE 82; RESP 16; O2SAT 98
[2025-07-23 15:36] VITALS: BP 168/62; PULSE 68; RESP 18; O2SAT 98
[2025-07-23 15:41] LABS: Alanine Aminotransferase 14 U/L (0-33); Albumin Level 4.8 g/dL (3.5-5.2); Alkaline Phosphatase 102 U/L (35-105); Anion Gap 18.4 (5-19); Aspartate Amino Transferase 21 U/L (0-32); Blood Urea Nitrogen 27 mg/dL (8-23); Calcium 9.3 mg/dL (8.5-10.5); Carbon Dioxide 24 mmol/L (22-29); Chloride 100 mmol/L (98-107); Creatinine Clr Calc Pharmacy 42.8275; Globulin 2.6 g/dL (1.3-4.6); Glucose 144 mg/dL (65-115); Osmolality Calculated 296 mOsm/kg (285-295); Potassium 3.4 mmol/L (3.5-5.1); Sodium 139 mmol/L (136-145); Total Protein 7.4 g/dL (6.6-8.7)
[2025-07-23 15:41] LABS: Glucose Urine UA Negative (Normal); Nitrate Urine Negative (Negative); Specific Gravity, Urine 1.014 (1.005-1.030)
[2025-07-23 16:12] LABS: Add Urine Microscopic? YES
[2025-07-23 18:06] VITALS: BP 127/88; PULSE 88; RESP 16; O2SAT 100
[2025-07-23 18:35] VITALS: BP 102/68; PULSE 82; O2SAT 98
== END 2025-07-23 18:32 | disposition home or self-care (01) ==
PROVIDERS: Emergency Provider Family Medicine; PCP Family Medicine
DX: K59.00 Constipation, unspecified (principal)
CPT/HCPCS: 74022; 80053; 81001; 85025; 99284

== ENCOUNTER 2025-07-24 15:00 | Oncology outpatient (recurring) (ONCR) | payer MEDICARE, SELFPAY ==
--- NOTE | 2025-07-13 10:30 | PETR_ITS ---
PROCEDURE INFORMATION: Exam: PET/CT Skull Base to Mid-thigh Exam date and time: 07/13/2025 11:33 AM Age: 80 years old Clinical indication: Condition or disease; Primary cancer: Ovarian cancer; ; Prior surgery; Surgery date: 6+ months; Surgery type: Hyst, gb LABS AND CLINICAL REPORTS: Glucose: 115 mg/dl Treatment strategy for malignancy (PET staging): Initial Staging (PI) TECHNIQUE: Imaging protocol: Following at least four-hour fasting and following the injection of radiopharmaceutical, low dose CT images were obtained. Then, PET images were obtained. Attenuation corrected images were constructed using the CT scan. Fused images of PET and CT were reviewed. The standardized uptake values (SUV) reported below are maximum values within a region of interest, expressed in gm/ml. Exam includes orbital meatal line to mid-thigh. SUV normalization method: BodyWeight Radiopharmaceutical: 9.09 mCi F-18 FDG (Fluorodeoxyglucose), IV. Time of imaging post radiopharmaceutical administration: 47 minutes Injection site: left ac COMPARISON: PT PET skull to thigh INIT [id number] 03/30/2025 10:50 AM FINDINGS: Tubes, catheters and devices: Right chest port terminates at the lower SVC. Brain: Visualized brain has normal physiologic uptake. Pharynx: No abnormal uptake. Larynx: No abnormal uptake. Lungs, pleura and trachea: No abnormal uptake. Few stable non FDG avid sub 6 mm nodules at the lower lungs without new or enlarging nodule. Bilateral calcified granulomata. Heart: Normal physiologic uptake. Coronary arteries: Moderate coronary artery calcification. Mediastinal space: No abnormal uptake. Diaphragm: Small hiatal hernia with decreased low-level FDG uptake showing SUV max 3.9, previously 5.2, likely inflammatory. Liver: No abnormal uptake. Gallbladder and biliary ducts: No abnormal uptake. Prior cholecystectomy. Pancreas: No abnormal uptake. Spleen: No abnormal uptake. Calcified granulomata. Adrenal glands: No abnormal uptake. Kidneys and ureters: Normal physiologic uptake. Stomach and bowel: No abnormal uptake. Moderate pancolonic stool burden. Colonic diverticulosis without findings of diverticulitis. Reproductive: The uterus is surgically absent. No pelvic mass. Vasculature: No abnormal uptake. Moderate systemic atherosclerotic calcification with stable ascending aortic ectasia measuring 4.3 cm. Lymph nodes: Decreased FDG uptake at stable mediastinal and bilateral hilar nodes with index right lower paratracheal node showing calcification and SUV max 4.5, previously 6.8. Right hilar SUV max 4.1, previously 7.8. Left hilar SUV max 3.7, previously 5.5. Skeleton: No abnormal uptake in the visualized axial and appendicular skeleton. Degenerative change along the axial skeletal system and bilateral acromioclavicular joints. Soft tissues: No abnormal uptake in the visualized head, neck, chest, abdomen, pelvis, and extremities. METRICS: Mediastinal blood pool: SUV mean 2.1 Liver uptake: SUV mean 2.5 PET/PET skull to thigh SUBS [id number] IMPRESSION: 1. No abnormal radiotracer uptake at the abdomen or pelvis. 2. Decreased FDG uptake at stable partially calcified mediastinal and bilateral hilar lymph nodes favored to be granulomatous. 3. Few stable non FDG avid sub 6 mm pulmonary nodules without new or enlarging nodule. 4. 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
[2025-07-24 15:15] LABS: Hematocrit 30.8 % (36-47); Hemoglobin 10.20 g/dL (11.27-16.99); Mean Corpuscular HGB Conc 33.1 g/dL (30-55); Mean Corpuscular Hemoglobin 31.7 pg (27-33); Mean Corpuscular Volume 95.7 fl (85-98); Nucleated Red Blood Cells % 0 %; Platelet Count 109 10^3/cmm (157-399); Red Blood Count 3.22 10^6/uL (3.85-5.65); White Blood Count 5.75 10^3/uL (3.29-11.43)
[2025-07-24 15:44] LABS: Alanine Aminotransferase 15 U/L (0-33); Albumin Level 4.3 g/dL (3.5-5.2); Alkaline Phosphatase 88 U/L (35-105); Anion Gap 16.7 (5-19); Aspartate Amino Transferase 20 U/L (0-32); Blood Urea Nitrogen 25 mg/dL (8-23); CA 125 5.8 U/mL (0-35); Calcium 9.1 mg/dL (8.5-10.5); Carbon Dioxide 24 mmol/L (22-29); Chloride 104 mmol/L (98-107); Creatinine Clr Calc Pharmacy 36.1108; Globulin 2.7 g/dL (1.3-4.6); Glucose 85 mg/dL (65-115); Osmolality Calculated 296 mOsm/kg (285-295); Potassium 3.7 mmol/L (3.5-5.1); Sodium 141 mmol/L (136-145); Total Protein 7.0 g/dL (6.6-8.7)
== END 2025-08-10 23:59 | disposition home or self-care (01) ==
PROVIDERS: PCP Family Medicine; Visit Provider Internal Medicine Medical Oncology
DX: C56.9 Malignant neoplasm of unspecified ovary; R03.0 Elevated blood-pressure reading, without diagnosis of hypertension; Z95.828 Presence of other vascular implants and grafts; Z53.9 Procedure and treatment not carried out, unspecified reason
CPT/HCPCS: 36591; 78815; 80053; 85025; 86304; 99214; A9552

== ENCOUNTER 2025-08-21 10:58 | Oncology outpatient (recurring) (ONCR) | payer MEDICARE, SELFPAY | END 2025-09-09 23:59 | disposition home or self-care (01) | PROVIDERS: PCP Family Medicine; Visit Provider Internal Medicine Medical Oncology | DX: Z45.2 Encounter for adjustment and management of vascular access device (principal); Z95.828 Presence of other vascular implants and grafts | CPT/HCPCS: 96523 ==

== ENCOUNTER 2025-09-18 11:13 | Oncology outpatient (recurring) (ONCR) | payer MEDICARE, SELFPAY | END 2025-10-10 23:59 | disposition home or self-care (01) | PROVIDERS: PCP Family Medicine; Visit Provider Internal Medicine Medical Oncology | DX: Z53.9 Procedure and treatment not carried out, unspecified reason; Z45.2 Encounter for adjustment and management of vascular access device; Z95.828 Presence of other vascular implants and grafts | CPT/HCPCS: 96523 ==